=== PATIENT | male | born 1975 | race Caucasian/White ===

== ENCOUNTER 2020-09-10 09:47 | Emergency (ER) | payer OTHER, SELFPAY ==
[2020-09-10 09:56] VITALS: BP 123/72; PULSE 93; RESP 20; TEMP 36.7; O2SAT 98
== END 2020-09-10 10:04 | disposition left against medical advice (07) ==
LOC: EXPBETH 09:53
PROVIDERS: Emergency Provider Registered Nurse
DX: Z53.21 Procedure and treatment not carried out due to patient leaving prior to being seen by health care provider (principal)
CPT/HCPCS: 99199

== ENCOUNTER 2021-08-19 13:42 | Emergency (ER) | payer OTHER, SELFPAY ==
[2021-08-19 13:50] VITALS: BP 172/93; PULSE 93; RESP 18; TEMP 36.8; O2SAT 99
--- NOTE | 2021-08-19 13:53 | ED.GENADULT ---
HPI - General Adult General Chief complaint: Unspecified Stated complaint: diabetic illness Time Seen by Provider: 08/19/21 13:53 Source: patient and RN notes reviewed Mode of arrival: ambulatory Limitations: no limitations History of Present Illness HPI narrative: 46-year-old male presents to the [facility] requesting a refill of his Metformin patient states that he has been out for 2 to 3 weeks. Has been using his insulin and his sugars have been running a little higher. Unable to get an appointment until early September. Increased urination. Denies any blurry vision change in vision. No chest pain or shortness of breath. No abdominal pain. No nausea vomiting or diarrhea. Related Data Home Medications Medication Instructions Recorded Confirmed insulin detemir U-100 [Levemir 100 unit SUBCUT BID 08/19/21 08/19/21 FlexTouch U-100 Insuln] metformin 1,000 mg PO BID 08/19/21 08/19/21 Allergies Allergy/AdvReac Type Severity Reaction Status Date / Time No Known Allergies Allergy Unverified 07/06/17 11:45 Review of Systems Review of Systems: All systems reviewed & are unremarkable except as noted in HPI and below Constitutional: Constitutional: Reports no additional constitutional complaints Eyes: Eyes: Reports no additional eye complaints ENT: Reports system reviewed and no additional complaints, except as documented Cardiovascular: Cardiovascular: Reports no additional cardiovascular complaints Respiratory: Respiratory: Reports no additional respiratory complaints Gastrointestinal: Gastrointestinal: Reports no additional gastrointestinal complaints Genitourinary: Genitourinary: Reports as per HPI Comments: Increased urination Musculoskeletal: Musculoskeletal: Reports no additional musculoskeletal complaints Integumentary/Breasts: Skin/Breast: Reports system reviewed and no additional complaints, except as docu Neurologic: Reports system reviewed and no additional complaints, except as documented Psychiatric: Psychiatric: Reports no additional psychiatric complaints Allergic/Immunologic: Allergic/Immunologic: Reports no additional allergic/immunologic complaints [facility] Past Medical History Medical History Diabetes Hypertension Social History Social History (Updated 08/19/21 @ 19:50 by Montserrat Madsen) Living arrangements: with family Gender identity (if verbalized by the patient): Male Comments At the time of my signature, I reviewed and agree with the nursing past medical, surgical, social, and family history. There is no relevant family history pertinent to the patient complaint. Exam Const: General: cooperative, healthy appearing, comfortable, no acute distress, well developed, alert and awake HENMT: Head: normal to inspection Ears: hearing grossly normal bilaterally and external ears normal General nose exam: Normal external nose present Face and sinus: normal facial exam Mouth: Yes Normal oral and palatal mucosa present Throat: posterior oropharynx normal Eyes: General: appearance normal, both eyes and all related structures Neck: Neck: normal visual inspection, full ROM, no lymphadenopathy and no meningeal signs Chest: Chest palpation & inspection: normal inspection of the chest Resp: Effort & Inspection: normal respiratory effort Cardio: Rate: regular rate Rhythm: regular rhythm GI: Inspection: normal to inspection GI Palp: No abdominal tenderness Back/Spine/Pelvis: Back: no CVA tenderness Skin: General skin exam: normal color Neuro: General: patient oriented x3 and gait normal Cognition (Neuro): normal cognition Speech: normal speech Gait exam (Neuro): Normal gait present Extrem: General: normal to inspection, full ROM and capillary refill normal Psych: Appearance: grossly normal and well kempt Mental Status: mental status grossly normal Speech and movement: Normal speech and movement present Course Course
[2021-08-19 14:08] LABS: Glucose Point of Care 297 mg/dl (65-105)
== END 2021-08-19 14:24 | disposition home or self-care (01) ==
PROVIDERS: Emergency Provider Nurse Practitioner
DX: E11.9 Type 2 diabetes mellitus without complications (principal); I10 Essential (primary) hypertension; Z79.4 Long term (current) use of insulin; Z79.84 Long term (current) use of oral hypoglycemic drugs
CPT/HCPCS: 81003; 82948; 99212; G0463

== ENCOUNTER 2022-03-13 10:28 | Emergency (ER) | payer OTHER, SELFPAY ==
[2022-03-13 10:35] VITALS: BP 139/79; PULSE 104; RESP 14; TEMP 37.2; O2SAT 98
--- NOTE | 2022-03-13 10:37 | ED.URI ---
HPI - URI/Sore Throat General Chief Complaint: Upper Respiratory Infection Stated Complaint: Cough/Body Aches Time Seen by Provider: 03/13/22 10:37 Source: patient and RN notes reviewed History of Present Illness HPI Narrative: Patient is a 47-year-old male who presents the urgent care with complaints of cough, coughing fits and feeling short of breath during the coughing fits. Patient states its been ongoing since Wednesday and seems to gotten worse this morning. Patient denies of any fever, chills, nausea, vomiting, chest pain. Denies of any ill exposures. Patient has not taken anything [id number] for his symptoms. No other acute complaints. No acute distress noted. Patient aware of the plan of care. Some parts of this dictation were generated by voice recognition software and may contain typographical and/or grammatical inaccuracies. Related Data Home Medications Medication Instructions Recorded Confirmed insulin detemir U-100 100 unit/mL 100 unit subcut BID 08/19/21 03/13/22 (3 mL) subcutaneous pen (Levemir FlexTouch U-100 Insulin) metformin 500 mg tablet,extended 1,000 mg PO BID 08/19/21 03/13/22 release 24 hr insulin lispro 100 unit/mL 100 ea subcut TID 03/13/22 03/13/22 subcutaneous pen lisinopril 20 mg tablet 20 mg PO DAILY 03/13/22 03/13/22 Allergies Allergy/AdvReac Type Severity Reaction Status Date / Time No Known Allergies Allergy Unverified 03/13/22 10:40 Review of Systems Review of Systems: CONSTITUTIONAL: Denies fever, chills, or sweats. EYES: Denies visual changes, redness, or discharge. ENT: Denies rhinorrhea, congestion, sore throat, or otalgia. CARDIOVASCULAR: Denies chest pain, palpitations, or edema. RESPIRATORY: Reports of dry cough with intermittent dyspnea during coughing fits GASTROINTESTINAL: Denies abdominal pain, nausea, vomiting, or diarrhea. GENITOURINARY: Denies dysuria or hematuria. SKIN: Denies rash or itching. MUSCULOSKELETAL: Denies back pain, joint pain, or myalgia. NEUROLOGIC: Denies headache, numbness, or weakness. All other systems reviewed are negative, except as documented in HPI. [facility] Past Medical History Medical History Diabetes Hypertension Social History Social History (Updated 08/19/21 @ 19:50 by Montserrat Madsen, CLINICAL PHARMACIST) Gender identity (if verbalized by the patient): Male Comments At the time of my signature, I reviewed and agree with the nursing past medical, surgical, social, and family history. There is no relevant family history pertinent to the patient complaint. Exam Narrative: GENERAL: This is a well-nourished, well-developed patient, in no apparent distress. HEAD: normocephalic, atraumatic. EYES: PERRL. Sclera clear/white. Vision is grossly intact. EARS: External ears normal, auditory canals clear and without drainage, TMs normal without perforation. Hearing grossly intact. NOSE: External nose normal with no obvious nasal discharge, nares without redness, yellowrhinorrhea. THROAT: Mucous membranes moist. Mild erythema noted posterior pharynx with moderate postnasal drainage NECK: Neck supple CARDIOVASCULAR: Regular rate and rhythm without murmurs, gallops, or rubs. RESPIRATORY: Dry cough noted on exam. Clear to auscultation. Breath sounds equal bilaterally. No wheezes, rales, or rhonchi. SKIN: warm, intact with no suspicious lesions or rash, good texture and turgor. NEURO: awake, alert, and oriented to person, place and time. There were no obvious focal neurologic abnormalities. EXTREMITIES: No clubbing, cyanosis, or edema. Course Course Level of Care: Express Care Visit Vital Signs Vital signs: Vital Signs Temperature 98.9 F 03/13/22 10:35 Pulse Rate 104 H 03/13/22 10:35 Respiratory Rate 14 03/13/22 10:35 Blood Pressure 139/79 03/13/22 10:35 Pulse Oximetry 98 03/13/22 10:35 Oxygen Delivery Room Air 03/13/22 10:35 Temperature 98.9 F 03/13/22 10:35 P
== END 2022-03-13 10:57 | disposition home or self-care (01) ==
PROVIDERS: Emergency Provider Nurse Practitioner Family
DX: R05.9 Cough, unspecified (principal); E11.9 Type 2 diabetes mellitus without complications; I10 Essential (primary) hypertension; Z79.4 Long term (current) use of insulin
CPT/HCPCS: 99213; G0463

== ENCOUNTER 2024-11-15 15:15 | Emergency (ER) | payer OTHER, SELFPAY ==
--- OUTSIDE RECORDS SUMMARY | 2024-11-15 15:18 | XMS_ITS | Referral Summary ---
Author Organization [facility] Address [address] [place] [address] Care Team Providers Care Glass Polisher Name Role Phone Gena Dill NP Primary Care Provider [phone] Allergies No known active allergies Medications OneTouch Verio test strips strip USE DIRECTED TO TEST BLOOD SUGAR TWICE DAILY 03/06/20 21 Active BD Ultra-Fine Short Pen Needle 31 gauge x 5/16 needle USE NEW PEN NEEDLE TWICE DAILY 03/07/20 21 Active insulin lispro (HumaLOG, ADMELOG) 100 unit/mL pen for injection Inject 8-13 Units under the skin 3 (three) times a day before meals 45 mL 1 11/19/19 23 Active albuterol HFA (PROVENTIL HFA,VENTOLIN HFA,PROAIR HFA) 90 mcg/actuation inhaler INHALE 2 PUFFS BY MOUTH FOUR TIMES DAILY NEEDED FOR SHORTNESS OF BREATH OR WHEEZING Active lisinopriL (PRINIVIL,ZESTRI L) 40 mg tablet Take 1 tablet (40 mg total) by mouth daily 30 tablet 11 02/14/20 23 Active hydroCHLOROthiaz tamika (MICROZIDE) 12.5 mg capsule Take by mouth daily 02/18/20 23 Active dulaglutide (TRULICITY) 0.75 mg/0.5 mL pen injectorIndicati ons:type 2 diabetes mellitus Inject 0.5 mL (0.75 mg total) under the skin every 7 days 6 mL 1 04/29/[address] (VOLTAREN) 75 mg EC tablet Take 1 tablet (75 mg total) by mouth 2 (two) times a day 07/16/20 23 Active rosuvastatin (CRESTOR) 20 mg tablet Take 1 tablet (20 mg total) by mouth daily 30 tablet 11 10/26/19 24 Active sildenafiL (VIAGRA) 100 mg tabletIndication s:Erectile dysfunction due to arterial insufficiency Take 1 tablet (100 mg total) by mouth daily as needed for erectile dysfunction (1 per day max) 20 tablet 6 01/25/20 24 2024 Active metFORMIN (GLUCOPHAGE) 1,000 mg tabletIndication s:Type 2 diabetes mellitus with hyperglycemia, with long-term current use of insulin (HCC) TAKE 1 TABLET(1000 MG) BY MOUTH TWICE DAILY WITH MEALS 180 tablet 1 09/07/20 24 Active insulin lispro (HumaLOG, ADMELOG) 100 unit/mL vial for injectionIndicat ions:Type 2 diabetes mellitus with hyperglycemia, with long-term current use of insulin (HCC) FOR USE IN INSULIN PUMP. MAXIMUM DAILY INSULIN IS 80 UNITS 30 mL 3 10/09/19 25 Active blood-glucose sensor (Dexcom G6 Sensor) deviceIndication s:Type 2 diabetes mellitus with hyperglycemia, with long-term current use of insulin (HCC) USE DIRECTED AND CHANGE SENSOR EVERY 10 DAYS 9 each 3 11/08/19 25 Active blood-glucose transmitter (Dexcom G6 Transmitter) deviceIndication s:Type 2 diabetes mellitus with hyperglycemia, with long-term current use of insulin (HCC) CHANGE EVERY 90 DAYS 1 each 3 11/13/19 25 Active blood-glucose transmitter (Dexcom G6 Transmitter) deviceIndication s:Type 2 diabetes mellitus with hyperglycemia, with long-term current use of insulin (HCC) Change transmitter every 90 days 1 each 3 07/22/20 23 2024 Discontinued blood-glucose sensor (Dexcom G6 Sensor) deviceIndication s:Type 2 diabetes mellitus with hyperglycemia, with long-term current use of insulin (HCC) USE DIRECTED AND CHANGE EVERY 10 DAYS 3 each 1 09/11/20 24 2024 Discontinued Active Problems Problem Noted Date Diagnosed Date Facial cellulitis 02/10/2023 Assessment & Plan (02/12/2023 2:09 PM CDT): See assessment and plan for sepsis. Assessment & Plan (02/11/2023 1:40 PM CDT): See assessment and plan for sepsis. Assessment & Plan (02/10/2023 5:41 PM CDT): See assessment and plan for sepsis. Dental caries 02/10/2023 Assessment & Plan (02/12/2023 2:13 PM CDT): See assessment and plan for sepsis. Assessment & Plan (02/11/2023 1:41 PM CDT): See assessment and plan for sepsis Assessment & Plan (02/10/2023 5:43 PM CDT): See assessment and plan for sepsis Sepsis 02/10/2023 Assessment & Plan (02/12/2023 2:13 PM CDT): On admission, tachycardia to 120 with leukocytosis 16,500. Source of infection with pyuria and documented maxillary cellulitis. Sepsis lactate was negative. CT facial bones with contrast with evidence of left maxillary cellulitis without an abscess. Additionally has a 2nd left premolar cavity. Started on IV Unasyn in the ED. blood cultures obtained on admission and pending. Concern for worsening infection on morning of 02/10. Initially expanded treatment to IV vancomycin and cefepime. Infectious Disease urgently consulted, appreciate the recommendations. MRSA nasal negative. Per ID's recommendations, previously received IV vancomycin and IV Unasyn until 02/11. Therapy now deescalated to IV Unasyn. Will consider transition to oral antibiotics pending Infectious Disease recommendations. Denies a prior history of MRSA. Less concerns for abscess or orbital infection given imaging. Visual acuity evaluated on 02/12 and presently with 20/20 vision with no differences bilaterally. On 02/12, leukocytosis improvement to 11,300. Plan: Infectious disease on consult. Appreciate recommendations on deescalating treatment in transition to p.o.. Continue IV Unasyn. Blood cultures 02/10 no growth to date. If further worsening, will consider ENT consult. Will require urgent outpatient oral surgeon follow-up. Recommended to also try seeking care with an embossing machine operator helper. Assessment & Plan (02/11/2023 1:47 PM CDT): On admission, tachycardia to 120 with leukocytosis 16,500. Source of infection with pyuria and documented maxillary cellulitis. Sepsis lactate was negative. CT facial bones with contrast with evidence of left maxillary cellulitis without an abscess. Additionally has a 2nd left premolar cavity. Started on IV Unasyn in the ED. blood cultures obtained on admission and pending. Concern for worsening infection on morning of 02/10. Initially expanded treatment to IV vancomycin and cefepime. Infectious Disease urgently consulted, appreciate the recommendations. MRSA nasal negative. Per ID's recommendations, therapy now deescalated to IV Unasyn and IV vancomycin. Will consider discontinuing vancomycin based on blood cultures and ID recommendations. Denies a prior history of MRSA. Less concerns for abscess given imaging or orbital infection. Visual acuity evaluated on 02/11 and presently with 20/20 vision with no differences bilaterally. On 02/11, leukocytosis improvement to 13,600. Plan: Infectious disease on consult. Appreciate recommendations on deescalating treatment in transition to p.o.. Continue IV vancomycin and IV Unasyn. Blood cultures 02/10 no growth to date. If further worsening, will consider ENT consult. Will require urgent outpatient oral surgeon follow-up. Recommended to also try seeking care with an embossing machine operator helper. Assessment & Plan (02/10/2023 5:46 PM CDT): On admission, tachycardia to 120 with leukocytosis 16,500. Source of infection with pyuria and documented maxillary cellulitis. Sepsis lactate was negative. CT facial bones with contrast with evidence of left maxillary cellulitis without an abscess. Additionally has a 2nd left premolar cavity. Started on IV Unasyn in the ED. blood cultures obtained on admission and pending. Concern for worsening infection on morning of 02/10. Initially expanded treatment to IV vancomycin and cefepime. Infectious Disease urgently consulted, appreciate the recommendations. MRSA nasal negative. Per ID's recommendations, therapy now deescalated to IV Unasyn and IV vancomycin. Will consider discontinuing vancomycin based on blood cultures and ID recommendations. Denies a prior history of MRSA. Less concerns for abscess given imaging or orbital infection. Visual acuity evaluated on 02/10 and presently with 20/20 vision with no differences bilaterally. Plan: Infectious disease on consult. Continue IV vancomycin and IV Unasyn. Blood cultures pending. If further worsening, will consider ENT consult. Will require urgent outpatient oral surgeon follow-up. Sinus tachycardia 02/10/2023 Assessment & Plan (02/12/2023 2:28 PM CDT): On admission, heart rate increased to 136. EKG obtained which demonstrated normal sinus with possible LVH. Denies any history of atrial fibrillation. Not presently on anticoagulation. Initial troponins negative. Denies any chest pain or dyspnea. Potentially secondary to ongoing sepsis. Vital signs reviewed on 02/12 and heart rate has declined to lower 90s-100s. Plan: Continue telemetry. Potentially may require rate control if further elevations. Assessment & Plan (02/11/2023 1:43 PM CDT): On admission, heart rate increased to 136. EKG obtained which demonstrated normal sinus with possible LVH. Denies any history of atrial fibrillation. Not presently on anticoagulation. Initial troponins negative. Denies any chest pain or dyspnea. Potentially secondary to ongoing sepsis. Vital signs reviewed on 02/11 and heart rate has declined to lower 90s-100s. Plan: Continue telemetry. Potentially may require rate control if further elevations. Assessment & Plan (02/10/2023 5:52 PM CDT): On admission, heart rate increased to 136. EKG obtained which demonstrated normal sinus with possible LVH. Denies any history of atrial fibrillation. Not presently on anticoagulation. Initial troponins negative. Denies any chest pain or dyspnea. Potentially secondary to ongoing sepsis. Vital signs reviewed on 02/10 and heart rate has declined to lower 110s. Plan: Continue telemetry. Potentially may require rate control if further elevations. Asymptomatic bacteriuria 02/10/2023 Assessment & Plan (02/12/2023 2:29 PM CDT): Urinalysis on admission with 21-50 wbc's, negative nitrites or or leukocytes. Denies any dysuria, frequency or urgency. Denies any flank pain. Physical examination reassuring. Urine culture with insignificant growth. Presently on covered with treatment of Unasyn. Plan: Continue to monitor clinically. Presently receiving treatment with IV Unasyn. Assessment & Plan (02/11/2023 1:44 PM CDT): Urinalysis on admission with 21-50 wbc's, negative nitrites or or leukocytes. Denies any dysuria, frequency or urgency. Denies any flank pain. Physical examination reassuring. Urine culture with insignificant growth. Presently on covered with treatment of Unasyn. Plan: Continue to monitor urine culture. Presently receiving treatment with IV Unasyn. Assessment & Plan (02/10/2023 6:04 PM CDT): Urinalysis on admission with 21-50 wbc's, negative nitrites or or leukocytes. Denies any dysuria, frequency or urgency. Denies any flank pain. Physical examination reassuring. Urine culture pending. Presently on covered with treatment of Unasyn. Plan: Continue to monitor urine culture. Presently receiving treatment with IV Unasyn. BMI 37.0-37.9, adult 02/10/2023 Assessment & Plan (02/12/2023 2:28 PM CDT): BMI 37.65 on admission. Recommend continue lifestyle modifications. Assessment & Plan (02/11/2023 1:43 PM CDT): BMI 37.65 on admission. Recommend continue lifestyle modifications. Assessment & Plan (02/10/2023 6:09 PM CDT): BMI 37.65 on admission. Recommend continue lifestyle modifications. Hypertension associated with type 2 diabetes michelle litus 01/14/2023 Assessment & Plan (07/22/2023 9:37 AM CDT): Chronic problem. Controlled on current lisinopril 40mg daily. Assessment & Plan (04/29/2023 9:44 AM CDT): Chronic problem. Controlled on current lisinopril 40mg daily. Assessment & Plan (02/12/2023 2:27 PM CDT): History of hypertension. Previously taking home medications of lisinopril 20 mg daily. BP on admission of 193/105. Acute elevation likely secondary to ongoing infection. P.r.n. hydralazine added for acute elevations. No evidence for focal neurological deficits at this time. Potentially has a component of hypertension given elevations. Vital signs reviewed on 02/12 and persistently elevated: Temp: [36.3 C (97.4 F)-37.1 C (98.8 F)] 36.3 C (97.4 F) Pulse: [87-104] 97 Resp: [12-18] 12 BP: (151-201)/(88-108) 154/100 Plan: On 02/11 increased lisinopril to 40 mg daily while inpatient. Continue hydralazine p.r.n. Will consider adding a 2nd line scheduled if continued elevation. Recommend outpatient evaluation for possible uncontrolled hypertension. Assessment & Plan (02/11/2023 1:42 PM CDT): History of hypertension. Previously taking home medications of lisinopril 20 mg daily. BP on admission of 193/105. Acute elevation likely secondary to ongoing infection. P.r.n. hydralazine added for acute elevations. No evidence for focal neurological deficits at this time. Potentially has a component of hypertension given elevations. Vital signs reviewed on 02/11 and persistently elevated: Temp: [36.1 C (96.9 F)-37.7 C (99.8 F)] 36.7 C (98 F) Pulse: [93-111] 101 Resp: [18-20] 18 BP: (147-190)/(85-108) 152/92 Plan: On 02/11, lisinopril to 40 mg daily while inpatient. Continue hydralazine p.r.n. Recommend outpatient evaluation for possible uncontrolled hypertension. Assessment & Plan (02/10/2023 5:48 PM CDT): History of hypertension. Previously taking home medications of lisinopril 20 mg daily. BP on admission of 193/105. Acute elevation likely secondary to ongoing infection. P.r.n. hydralazine added for acute elevations. No evidence for focal neurological deficits at this time. Potentially has a component of hypertension given elevations. Plan: Will increase lisinopril to 40 mg daily while inpatient. Continue hydralazine p.r.n. Recommend outpatient evaluation for possible uncontrolled hypertension. Assessment & Plan (01/14/2023 9:43 AM CDT): Chronic problem. At goal on current lisinopril 20mg daily. No changes at this time. Insulin pump status 01/14/2023 Assessment & Plan (07/22/2023 9:41 AM CDT): No pump setting changes. Assessment & Plan (04/29/2023 9:45 AM CDT): Basal rate changed from 1.6 units/hr to 1.7 units/hr. Aware to monitor BS closely once he starts the Trulicity. May need to adjust basal rate. Assessment & Plan (01/14/2023 9:44 AM CDT): New pump started 1 week ago today. Doing well. Discussed food & correctional boluses. No pump setting changes today. Candidal balanitis 01/15/2022 Erectile dysfunction 01/15/2022 Assessment & Plan (10/26/2023 10:36 AM SOLUTIONS ENGINEER): Start Sildenafil Vasectomy evaluation 01/15/2022 COVID-19 05/26/2021 Type 2 diabetes mellitus wit h hyperglycemia, with long-term current use of insulin 05/19/2018 Assessment & Plan (10/26/2023 10:35 AM SOLUTIONS ENGINEER): Hba1c was Lab Results Component Value Date HGBA1C 6.3 10/26/2023 today, indicating adequate DM control Goal Hba1c under 7 and blood glucose level in the 120-160 range was explained Low carb diet and daily aerobic and /or resistant exercise were advised Prevention and treatment of hyypoglcyemia were discussed with the patient Blood glucose monitoring : CGM with DEXCOM Adjustment to medications: Continue pump at current settings Setting adjusted, started on control IQ Assessment & Plan (07/22/2023 9:37 AM CDT): Chronic problem. A1c stable; changed from 7.0% to now 7.2%. Increased basal rate from 1.6 to 1.7 units/hr. Insurance does not cover Ozempic. Will start Trulicity 0.75mg weekly. Aware to monitor BS closely once starting. May need to adjust basal rate. Current medications: Metformin 1000mg twice daily before meals Trulicity 0.75mg weekly Humalog via T-Slim with CIQ (turned off at time of appt) BR 12a 1.7 CR 6 CF 25 T 110 AIT 5 hours UTD on labs. UTD on DM eye exam. Strive for regular exercise (30min most days) and diet (get at least 4-5 servings of fruit and veggies daily, avoid processed foods, increase lean protein intake and decrease carb portions as well as fruit juices, regular soda & desserts). Watch carbs and simple sugars. Dexcom for blood sugar. Check the feet daily for skin breakdown and infection. Assessment & Plan (04/29/2023 9:44 AM CDT): Chronic problem. A1c stable; changed from 7.0% to now 7.2%. Increased basal rate from 1.6 to 1.7 units/hr. Insurance does not cover Ozempic. Will start Trulicity 0.75mg weekly. Aware to monitor BS closely once starting. May need to adjust basal rate. Current medications: Metformin 1000mg twice daily before meals Trulicity 0.75mg weekly Humalog via T-Slim with CIQ (turned off at time of appt) BR 12a 1.7 CR 6 CF 25 T 110 AIT 5 hours UTD on labs. UTD on DM eye exam; had 01/2023 at [facility]. Letter sent to get copy of report. Strive for regular exercise (30min most days) and diet (get at least 4-5 servings of fruit and veggies daily, avoid processed foods, increase lean protein intake and decrease carb portions as well as fruit juices, regular soda & desserts). Watch carbs and simple sugars. Check the feet daily for skin breakdown and infection. Assessment & Plan (02/12/2023 2:14 PM CDT): History of type 2 diabetes mellitus. Potentially contributing to worsening infection. Previously taking home regimen of insulin pump and metformin. While inpatient has been started on lispro sliding scale. Blood sugars reviewed on 02/12 and presently stable 96-130. Plan: Continue insulin sliding pump. Continue lispro sliding scale prandially Continue consistent carbohydrate diet. Assessment & Plan (02/11/2023 1:42 PM CDT): History of type 2 diabetes mellitus. Potentially contributing to worsening infection. Previously taking home regimen of insulin pump and metformin. While inpatient has been started on lispro sliding scale. Blood sugars reviewed on 02/11 and presently stable 132-152. Plan: Continue insulin sliding pump. Continue lispro sliding scale prandially Continue consistent carbohydrate diet. Assessment & Plan (02/10/2023 5:43 PM CDT): History of type 2 diabetes mellitus. Potentially contributing to worsening infection. Previously taking home regimen of insulin pump and metformin. While inpatient has been started on lispro sliding scale. Blood sugars reviewed on 02/10 and presently stable. Plan: Continue insulin sliding pump. Continue lispro sliding scale prandially Continue consistent carbohydrate diet. Assessment & Plan (01/14/2023 9:43 AM CDT): Chronic problem, at goal on A1c but variable sugar levels during waking hours. A1c improved from 8.7% to now 7.0% Reviewed both Tandem & Dexcom downloads w/[employer]. No pump changes at this time. To enter food bolus & correctional boluses more consistently. To call to get your diabetic eye exam. Will update MA/Cr & Lipid today. Verified that he uses [facility]. Aware to check results/results letter in [facility]. Will contact by phone if needed. Will try to get Ozempic again. 0.25mg weekly for 2 weeks. Then increase to 0.5mg weekly. Current medications: Metformin 1000mg twice daily before meals Ozempic 0.25mg weekly x2 weeks then increase to 0.5mg weekly T-Slim with CIQ BR 12a 1.6 CR 6 CF 25 T 110 AIT 5 hours Assessment & Plan (10/15/2022 2:07 PM SOLUTIONS ENGINEER): Hba1c was Lab Results Component Value Date HGBA1C 8.7 10/15/2022 today, indicating inadequate DM control Goal Hba1c under 7 and blood glucose 110-150 was explained Diet and exercise were advised Prevention and treatment of hyypoglcyemia were discussed with the patient Blood glucose monitoring : start CGM with DEXCOM Adjustment to medications: Lower Levemir to 50 units twice a day, morning and bedtime, Take Humalog, 8 units before each meal For sugars over 160, take 10 units For sugars over 200, take 11 units For sugars over 240, take 12 units For sugars over 280, take 13 units Stay on Metformin Start Mounjaro 2.5 mg weekly x 4 weeks, then continue with 5 mg weekly Will start process for insulin pump with Tandem Assessment & Plan (03/24/2021 4:35 PM CDT): Diagnosed with diabetes in 2013 Started insulin ar diagnosis Control : poor control- compliance with insulin and diet in questionable A1c was 12% on 11/29/20 Kidney: GFR 118 on 09/10/20 Neuropathy : mild- to moderate Plan: Refer patient to dietitian ADA diet explained to patient Decrease Levemir insulin to 80 units bid Increase Humalog insulin before meals to 15-15-20 units Plus sliding scale + 5 units > 250 + 10 units > 300 Continue Metformin 500 mg bid Monitor sugars 3 x per day and send records in 2 weeks. Hypoglycemia symptoms and treatment reviewed with patient. Call if having low sugars. Ophthalmology exam on regular basis. Assessment & Plan (05/19/2018 10:31 PM CDT): Patient states he is supposed to be on insulin but does not know what type. He has been taking insulin sporadically. Will check HbA1c and cover with a sliding scale. Hyperlipidemia associated with type 2 diabetes harrison gibson 05/19/2018 Assessment & Plan (10/26/2023 10:36 AM SOLUTIONS ENGINEER): Increased CV in DM pts discussed Start Rosuvastatin 20 mg daily Assessment & Plan (05/19/2018 10:31 PM CDT): Continue medications Tachycardia 05/19/2018 Assessment & Plan (05/19/2018 10:32 PM CDT): Likely due to infection. Will give patient bolus and run some maintenance fluids and continue to monitor. Leukocytosis 05/19/2018 Assessment & Plan (05/19/2018 10:38 PM CDT): Likely secondary to infection. Will continue to monitor. Resolved Problems Problem Noted Date Diagnosed Date Resolved Date Morbid (severe) obesity due to excess calories 10/15/2022 01/13/2023 Acute cystitis with hematuria 05/19/2018 01/13/2023 Assessment & Plan (05/19/2018 10:32 PM CDT): Similar event 1-2 years ago. Hematuria has resolved after antibiotics. Will continue with antibiotics. Patient will need outpatient urology follow-up for possible cystoscopy. Social History Tobacco Use Types Packs/Day Years Used Date Smoking Tobacco: Former Cigars Smokeless Tobacco: Never Comments:1 cigar approximate ly once a month. Patient states he no longer smokes cigars Alcohol Use Standard Drinks/Week Comments Yes 0 (1 standard drink = 0.6 oz pur e alcohol) occassionally AUDIT-C Answer Date Recorded Q1: How often do you have a drink containing alc ohol? Monthly or less 02/10/2023 Q2: How many drinks containi ng alcohol do you have on a typical day when you are drinking? 5 or 6 02/10/2023 Q3: How often do you have si x or more drinks on one occasion? Less than monthly 02/10/2023 Personal Safety Answer Date Recorded Getting School Help Needed Not on file 02/14 Sex and Gender Information Value Date Recorded Sex Assigned at Not on file Legal Sex Male 12:29 AM SOLUTIONS ENGINEER Gender Identity Not on file Sexual Orientation Not on file Last Filed Vital Signs Vital Sign Reading Time Taken Comments Blood Pressure 120/70 10/26/2023 9:53 AM SOLUTIONS ENGINEER Pulse 92 10/26/2023 9:53 AM SOLUTIONS ENGINEER Temperature 36.4 C (97.5 F) 02/13/2023 10:51 AM CDT Respiratory Rate 18 10/26/2023 9:53 AM SOLUTIONS ENGINEER Oxygen Saturation 98% 02/13/2023 10: 51 AM CDT Inhaled Oxygen Concentration - - Weight 113.1 kg (249 lb 4.8 oz) 10/26/2023 9:53 AM SOLUTIONS ENGINEER Height 170.2 cm (5' 7.01 ) 10/26/2023 9:53 AM CS T Body Mass Index 39.03 10/26/2023 9:53 AM SOLUTIONS ENGINEER Plan of Treatment Not on file Procedures Procedure Name Priority Date/Time Associated Diagnosis Comments POCT HEMOGLOBIN A1C Routine 10/26/2023 9 :53 AM SOLUTIONS ENGINEER Type 2 diabetes mellitus with hyperglycemia, with long-term current use of insulin ([facility]) ([facility]) DIABETES EYE EXAM Routine 02/18/2023 8:38 AM CDT EGFR Routine 02/13/2023 5:23 AM CDT LIPID PANEL Routine 01/14/2023 9:50 AM CDT Type 2 diabetes mellitus with hyperglycemia, with long-term current use of insulin ([facility]) ([facility]) ALBUMIN CREATININE RATIO, URINE Routine 01/14/2023 9:50 AM CDT Type 2 diabetes mellitus with hyperglycemia, with long-term current use of insulin ([facility]) ([facility]) from Last 3 Months or Most Recently Relevant to Health Maintenance Results * (ABNORMAL) POCT hemoglobin A1c (10/26/2023 9:53 AM SOLUTIONS ENGINEER) Hemoglobin A1C, POC 6.3 % Blood spot 10/26/2023 9:53 AM SOLUTIONS ENGINEER us Judah Morales MD POINT OF CARE TEST ORDERABLES Fi nal Result * DIABETES EYE EXAM (02/18/2023 8:38 AM CDT) Historical Provider HEALTH MAINTENANCE Edited Result - Final * eGFR (02/13/2023 5:23 AM CDT) eGFR 116 mL/min/1. 73 m2 LENCHO PINEDA ([facility]END[facility]) Comment: Interpretive Data Reference Interval Normal >/= 90 mL/min/1.73m2 Mildly decreased* 60 - 89 mL/min/1.73m2 Mildly to moderately decreased 45 - 59 mL/min/1.73m2 Moderately to severely decreased 30 - 44 mL/min/1.73m2 Severely decreased 15 - 29 mL/min/1.73m2 Kidney Failure < 15 mL/min/1.73m2 *Relative to young adult level Estimated glomerular filtration rate is determined by the 2020 CKD-EPI equation recommended by the [employer] (A Unifying Approach to GFR Estimation: Recommendations of the NKF-ASK Task Force on Reassessing the Inclusion of Race in Diagnosing Kidney Disease, JASN 2020). The CKD-EPI equation should not be used for patients with unstable renal function and has not been validated in children and those over 70. Current interpretive data was last reviewed 2021. Blood 02/13/2023 5:23 AM CDT 02/13/2023 5:26 AM CDT us Carrie Lynch MD LAB BLOOD ORDERABLES Lana l Result [facility] Department [place] [address] * (ABNORMAL) Albumin Creatinine Ratio, Urine (01/14/2023 9:50 AM CDT) Albumin Ur 26.2 mg/L [facility] Comment: Interpretive Data No reference range established. Current interpretive data was last revised 2019. Creatinine Ur 88.7 mg/dL [facility] Comment: Interpretive Data No reference range established. Current interpretive data was last revised 2019. Albumin Creatinine Ratio, Ur 30(H) 1 - 29 mg/g [facility] Urine 01/14/2023 9:50 AM CDT 01/14/2023 2:58 PM CDT us Senia Barry NP LAB URINE ORDERABLES Lana l Result [facility] [id number] Department [place] [address] * (ABNORMAL) Lipid panel (01/14/2023 9:50 AM CDT) Cholesterol 204(H) 30 - 199 mg/dL [facility] J[facility] Comment: Interpretive Data Ages < or = 19 years Acceptable: <170 mg/dL Borderline high: 170-199 mg/dL High: >or= 200 mg/dL Ages > or = 20 years Desirable: <200 mg/dL Borderline high: 200-239 mg/dL High: >or= 240 mg/dL Literature References: 1. Expert Panel on Integrated Guidelines for Cardiovascular Health and Risk Reduction in Children and Adolescents. Pediatrics 2011;128:S213 2. NCEP Expert Panel. Circulation 2004;110:227 Current Interpretive Data was last revised on 2018. Triglycerides 292(H) <=149 mg/dL [facility] Comment: Interpretive Data Ages < or = 9 years Acceptable: <75 mg/dL Borderline high: 75-99 mg/dL High: >or= 100 mg/dL Ages 10 to 20 years Acceptable: <90 mg/dL Borderline high: 90-129 mg/dL High: >or= 130 mg/dL Ages > or = 20 years Desirable: <150 mg/dL Borderline high: 150-199 mg/dL High: 200-499 mg/dL Very high: >or= 499 mg/dL Literature References: 1. Expert Panel on Integrated Guidelines for Cardiovascular Health and Risk Reduction in Children and Adolescents. Pediatrics 2011;128:S213 2. NCEP Expert Panel. Circulation 2004;110:227 Current Interpretive Data was last revised on 2018. HDL 41 >=40 mg/dL [facility] Comment: Interpretive Data Ages < or = 19 years Acceptable: >45 mg/dL Borderline low: 40-45 mg/dL Low: <40 mg/dL Ages > or = 20 years Desirable: >or= 60 mg/dL Low: <40 mg/dL Literature References: 1. Expert Panel on Integrated Guidelines for Cardiovascular Health and Risk Reduction in Children and Adolescents. Pediatrics 2011;128:S213 2. NCEP Expert Panel. Circulation 2004;110:227 Current Interpretive Data was last revised on 2018. LDL, calculated 105 <=129 mg/dL [facility] Comment: Interpretive Data Ages < or = 19 years Acceptable: <110 mg/dL Borderline high: 110-129 mg/dL High: >or= 130 mg/dL Ages > or = 20 years Optimal: <100 mg/dL Near optimal: 100-129 mg/dL Borderline high: 130-159 mg/dL High: >160 mg/dL Literature References: 1. Expert Panel on Integrated Guidelines for Cardiovascular Health and Risk Reduction in Children and Adolescents. Pediatrics 2011;128:S213 2. NCEP Expert Panel. Circulation 2004;110:227 Current Interpretive Data was last revised on 2018. Non-HDL Cholesterol 163 mg/dL [facility] Comment: Interpretive Data Ages < or = 19 years Acceptable: <120 mg/dL Borderline high: 120-144 mg/dL High: >145 mg/dL Ages > or = 20 years When triglycerides are >200 mg/dL, Non-HDL cholesterol is a secondary target of therapy with treatment goals that are 30 mg/dL greater than the LDL cholesterol target. Literature References: 1. Expert Panel on Integrated Guidelines for Cardiovascular Health and Risk Reduction in Children and Adolescents. Pediatrics 2011;128:S213 2. NCEP Expert Panel. Circulation 2004;110:227 Current Interpretive Data was last revised on 2018. Chol/HDL ratio 5 [facility] Blood 01/14/2023 9:50 AM CDT 01/14/2023 2:58 PM CDT Senia Barry NP LAB BLOOD ORDERABLES Lana l Result [facility]CHO [facility] [id number] Department [place] [address] from Last 3 Months or Most Recently Relevant to [place] [address] [facility] Advance Directives For more information, please contact: [phone] * Full Code (Latest Code Status on File) Date Activated Date Inactivated Comments 02/10/2023 5:12 AM 02/13/2023 4:56 PM * Full Code Date Activated Date Inactivated Comments 05/19/2018 2:03 PM 05/21/2018 4:13 PM Care Teams 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
--- OUTSIDE RECORDS SUMMARY | 2024-11-15 15:18 | XMS_ITS | Clinical Summary ---
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 Name Role Phone Gena Dill APRN, [employer] Primary Care Provider Social History Tobacco Use Types Packs/Day Years Used Date Smoking Tobacco: Never Assessed Sex and Gender Information Value Date Recorded Sex Assigned at Not on file Legal Sex Male 10:38 PM CDT Gender Identity Not on file Sexual Orientation Not on file Plan of Treatment Health Maintenance Due Date Last Done Comments Hepatitis C Virus (HCV) Screening 1975 TdaP Immunization 1975 Hepatitis B Immunization (1 of 3 - 19+ 3-dose series) 1994 Colonoscopy 2020 Colorectal Cancer Screening 2020 Influenza Immunization (#1) 2024 11/0 01/2018, 07/02/2015 SARS-COV-2 Immunization ( season) 2024 Respiratory Syncytial Virus (RSV) Immunization (Adult) (1 - 1-dose 75+ series) 2050 Meningococcal Immunization (ACWY) Aged Out No longer eligible b ased on patient's age to complete this topic Pneumococcal Immunization Combined Aged Out No longer eligible b ased on patient's age to complete this topic Rotavirus Immunization Aged Out No lo nger eligible based on patient's age to complete this topic Insurance MEDICAID [employer] Care Teams Steel Fitter Relationship Specialty Start Date End Date Gena Dill APRN, [employer] [address] [place] [address] PCP - General Advanced Practice Nurse 11/27/21
--- OUTSIDE RECORDS SUMMARY | 2024-11-15 15:18 | XMS_ITS | Data Portability ---
Author Organization [facility] Address [address] [place] [address] Care Team Providers Care Physics Technician Name Role Phone ARMANI, GENA Primary Care Provider [phone] Assessment Encounter Date Assessment Date Assessment LastModified by Organization Details LastModified Time 08/12/2022 08/12/2022 Mr. Keller came into the office, requesting a compliance letter that would allow him to keep his job. 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 Not available 08/25/2022 08:31:42 10/29/2022 10/29/2022 Mr. Keller presented via telephone communication for ER f/u appointment. Patient presented to [facility] on 10/26 with c/o vomiting, fever, and tooth abscess. Patient prescribed antibiotics and discharged. Patient reports he just picked up the antibiotic prescribed by both the hospital and his dentist. Patient reports no change in symptoms, still having chills, cough, congestion, body aches and diarrhea. Reviewed by Dr. Johnson, who concurs with assessment and plan. [email or web address] Not available 11/02/2022 13:26:09 02/17/2023 02/17/2023 Mr. Keller presented in office today for f/u appointment. Not available 02/24/2023 21:46:40 03/31/2023 03/31/2023 Mr.. Keller presented in office today for f/u appointment. Not available 03/31/2023 09:43:39 07/16/2023 07/16/2023 Mr. Keller presented in office today c/o bilateral shoulder pain. The patient reports that he has experienced shoulder pain for five years, and during the last three to four weeks, it has gotten worse. [email or web address] Not available 07/16/2023 11:47:03 Plan of Treatment Reminders Order Date Submit Date Provider Last Modified By Organization Details Last Modified Time Details Appointments None recorded. Lab None recorded. Referral orthopedi c surgeon referral 2022 023 alexis Walker MD, [address] [facility] , [address], [place], [address], 4 16:21:21 Procedures None recorded. Surgeries None recorded. Imaging XR, shoulder, 2 or more view 2022 023 TRE Toney (Radiology), [address] [facility] , [place], [address], 3 10:41:01 Medication Orders diclofena c sodium 75 mg tablet,de layed release 2022 023 [place] [address] [id number], [address], [place], [place], [id number], 3 11:43:04 hydrochlo rothiazid e 12.5 mg capsule 2022 023 [address] [facility] [id number], [address], [place], [place], [id number], 3 10:34:48 benzonata te 100 mg capsule 2022 023 [id number], [address], [place], [place], [id number], 3 08:28:35 Mucinex DM 60 mg-1,200 mg tablet,ex tended release 12 hr 2022 023 [id number], [address] [place], [id number], 11:01:34 Patient TargetsNo targets recorded. Patient Instructions Encounter Date Encounter Id Patient Instructions Last Modified By Organization Details Last Modified Time 08/12/2022 [id number] - Always present to ER or Urgent Care with any progression of/alarming symptoms, significant changes in symptoms or any concerning or urgent matters Not available 08/25/2022 08:27:58 10/29/2022 [id number] - Always present to ER or Urgent Care with any progression of/alarming symptoms, significant changes in symptoms or any concerning or urgent matters Not available 10/29/2022 09:49:48 02/17/2023 [id number] A healthy lifestyle: care instructions Not available 02/24/2023 16:05:36 how to read a food label to limit sodium: care instructions Not available 02/17/2023 10:35:35 low sodium diet (2,000 milligram): care instructions Not available 02/17/2023 10:35:35 - Always present to ER or Urgent Care with any progression of/alarming symptoms, significant changes in symptoms or any concerning or urgent matters Not available 02/24/2023 21:38:12 03/31/2023 [id number] - Always present to ER or Urgent Care with any progression of/alarming symptoms, significant changes in symptoms or any concerning or urgent matters Not available 03/31/2023 09:37:28 07/16/2023 [id number] A healthy lifestyle: care instructions Not available 07/16/2023 11:19:11 shoulder pain: care instructions Not available 07/16/2023 11:19:11 shoulder stretches: exercises Not available 07/16/2023 11:19:10 - Always present to ER or Urgent Care with any progression of/alarming symptoms, significant changes in symptoms or any concerning or urgent matters Not available 07/16/2023 11:54:46 Reason for Referral Orthopedic Surgeon Referral for Bilateral shoulder joint pain Referring Physician: Gena Lomeli, Family Medicine, Encounter Date: 07/16/2023 Results Created Date Observation Date Name Description Value Unit Range Abnormal Flag Note LastModifiedBy Organization Detail LastModifiedTime 07/24/20 22 07/31/2022 HEMOG LOBIN A1C hemoglobin A1C 10.7 % 4.8-5. 6 above high normal Predi abete s: 5.7 - 6.4 Diabe altaf: >6.4 Glyce trina contr ol for adult s with diabe altaf: <7.0 Not Available [facility] ([facility]) [address], [place], [address], 07/31/2022 14:11:35 07/24/20 23 07/22/2023 XR, shoul kirit, 2 or more view No observ ation record ed. [address], [address], 07/29/2023 10:45:36 07/24/20 23 07/22/2023 XR, shoul kirit, 2 or more view No observ ation record ed. [facility] [address], [address], 07/29/2023 10:45:37 Result Notes None recorded. Problems Name Problem SNOMED Code Status Onset Date Resolution Date Notes Provider Name and Address Organization Details Recorded Time Mood disorder 89651080 Active 2019 Marbella han, [place] - [place] 0 16:20:45 Mixed hyperlipi demia 732351079 Active 2019 GENA LOMELI NP Attn: Accounting, [address] [place], [address], [place] - [place] 2 09:06:53 Adult health examinati on Completed 201906/13/2020 GENA LOMELI NP Attn: Accounting, [address] [place], [address], [facility] - [facility] 0 15:05:33 Right lower quadrant pain 938004380 Active 2020 GENA LOMELI NP Attn: Accounting, [address] [place], [address], [place] - [facility] 1 13:45:43 Noncompli ance with therapeut ic regimen 426736266 Completed 202110/13/2021 GENA LOMELI NP Attn: Accounting, [address] [facility], [place], [place], [address] [place] [address], [place] - [facility] 2 18:51:14 Uncontrol led type 2 diabetes mellitus 990774171 Active 2021 GENA LOMELI NP Attn: Accounting, [address] [facility], [place], [place], [address] [place] [address], [place] - [facility] 2 09:06:53 Noncompli ance with medicatio n regimen 922021725 Active 2021 GENA LOMELI NP Attn: Accounting, [address] [facility], [place], [place], [address] [place] [address], [place] - [facility] 2 18:17:25 Noncompli ance with treatment 0461666 Active 2021 GENA LOMELI NP Attn: Accounting, [address] [facility], [place], [place], [address] [place] [address], [place] [facility] 2 18:17:26 Candidal balanitis 83052919 Active 2021 GENA LOMELI NP Attn: Accounting, [address] [facility], [place], [place], [address] [place] [address], [place] [facility] 2 18:24:26 Liver function tests outside reference range 605460226 Active Zay Edwards MD Attn: Accounting, [address] [facility], [place], [place], [address] [place] [address], [place] [facility] 6 16:58:04 Sleep pattern disturban ce 94810660 Active Zay Edwards MD Attn: Accounting, [address] [facility], [place], [place], [address] [place] [address], [place] - [facility] 6 16:58:04 Hyperchol esterolem ia 91029747 Completed 11/28/2020 GENA LOMELI NP Attn: Accounting, [address] [facility], [place], [address], [place] [facility] 1 13:25:40 Vitamin D deficienc y 05184549 Active Zay Edwards MD Attn: Accounting, [address] [facility], [place], [address], [place] [facility] 6 17:18:47 Obstructi ve sleep apnea syndrome 99119874 Active GENA LOMELI NP Attn: Accounting, [address] [facility], [place], [address], [place] [facility] 2 09:06:54 Diabetes mellitus 39404613 Active GENA LOMELI NP Attn: Accounting, [address] [place], [address], [place] [facility] 2 09:06:54 Hypertrig lyceridem ia 816667875 Completed 11/28/2020 GENA LOMELI NP Attn: Accounting, [address] [facility], [place], [address], [place] [facility] 1 13:25:37 Hypertens jeremias disorder 82148113 Completed 06/13/2020 GENA LOMELI NP Attn: Accounting, [address] [place], [address], [place] [facility] 0 15:04:13 Essential hypertens ion 72037652 Active GENA LOMELI NP Attn: Accounting, [address] [place], [address], [place] [facility] 2 09:06:54 Obesity 110504968 Active Zay Edwards MD Attn: Accounting, [address] [place], [address], [place] [facility] 6 17:18:47 Problem Notes None recorded. Procedures Surgical History None recorded. Imaging Results Imaging Date Name Status LastModified by [facility] Details LastModified Time 07/22/2023 XR, shoulder, 2 or more view [facility] [address] [facility], [place], [address], 07/29/2023 10:45:36 07/22/2023 [facility]R, [facility], [facility] [address], [place], [address], 07/29/2023 10:45:37 Procedure Notes None recorded. Medical Equipment None Reported. Allergies No known drug allergies Medications Name Sig Start Date Stop Date Status Note LastModified by Organization Details LastModified Time softclix mis lancetsacc u-chek softclix lancets active Not Available Not Available Not Available metformin tab 1000mgmetf ormin hcl active Not Available Not Available No t Available fenofibrat e tab 160mgfenof ibrate active Not Available Not Available Not Available accu-chek altaf compactacc u-chek compact plus active Not Available Not Available Not Available lantus inj 100/mllant us 05/20 completed Not Available Not Available Not Available furosemide 20 mg tabs active Not Available Not Available N ot Available accu-chek kit compactacc u-chek compact plus care kit active Not Available Not Available Not Available potassium chloride er 10 meq tbcr active Not Available Not Available Not Available lisinop/hc tz tab 20-12.5lis inopril/hy drochlorot hiazide active Not Available Not Available Not Available lantus 100 unit/ml soln 05/20 completed Not Available Not Available Not Available lovastatin 10 mg tabs active Not Available Not Available N ot Available aspirin low tab 81mg ecaspirin ec low dose active Not Available Not Available Not Available metformin hcl 1000 mg tabs active Not Available Not Available Not Available fenofibrat e 160 mg tabs active Not Available Not Available Not Available lisinopril /hydrochlo rothiazide 20-12.5 mg tabs active Not Available Not Available Not Available insulin syrg mis 1ml/31gins ulin syringe/u- 100/1ml/31 g x 5/16 05/20 completed Not Available Not Available Not Available insulin syringe/u- 100/1ml/31 g x 02/09 31g x 5/16 1 ml misc 08/24 /2017 completed Not Available Not Available Not Available glipizide 5 mg tabs active Not Available Not Available No t Available glipizide tab 5mgglipizi de active Not Available Not Available Not Available lovastatin tab 10mglovast atin active Not Available Not Available Not Available amoxicilli n 500 mg capsule TAKE 1 CAPSULE BY MOUTH EVERY 8 HOURS 03/06 completed Not Available Not Available Not Available atorvastat in 80 mg tablet TAKE 1 TABLET BY MOUTH EVERY DAY IN THE EVENING 07/24 completed pt not taking Not Available Not Available Not Available clindamyci n HCl 300 mg capsule TAKE 1 CAPSULE BY MOUTH THREE TIMES DAILY EVERY 8 HOURS 02/17 completed Not Available Not Available Not Available lisinopril 20 mg-hydroch lorothiazi de 12.5 mg tablet TAKE 1 TABLET BY MOUTH EVERY DAY 10/04 completed Not Available Not Available Not Available ibuprofen 800 mg tablet 10/04 completed Not Available Not Available Not Available fluconazol e 150 mg tablet TAKE 1 TABLET BY MOUTH EVERY DAY FOR 1 DAY 07/24 completed Not Available Not Available Not Available hydrocodon e 5 mg-acetami nophen 325 mg tablet TAKE 1 TO 2 TABLETS BY MOUTH EVERY 4 HOURS NEEDED FOR PAIN. NO MORE THAN 8 TABLETS PER DAY. 03/31 completed Not Available Not Available Not Available lisinopril 20 mg tablet TAKE 1 TABLET BY MOUTH EVERY DAY 02/17 completed Not Available Not Available Not Available prednisone 20 mg tablet TAKE 1 TABLET BY MOUTH DAILY 07/24 completed Not Available Not Available Not Available Lantus U-100 Insulin 100 unit/mL subcutaneo us solution 100 units twice daily 06/13 completed Not Available Not Available Not Available Accu-Chek Softclix Lancets TEST TWICE DAILY active Not Available Not Available No t Available potassium chloride ER 10 mEq tablet,ext ended release TAKE 1 TABLET BY MOUTH EVERY DAY AFTER MEALS 01/01 completed Not Available Not Available Not Available ciprofloxa sai 500 mg tablet 01/01 completed Not Available Not Available Not Available sulfametho xazole 800 mg-trimeth oprim 160 mg tablet 05/26 completed Not Available Not Available Not Available lovastatin 10 mg tablet TAKE 1 TABLET BY MOUTH EVERY NIGHT AT BEDTIME 06/18 completed Not Available Not Available Not Available sildenafil 100 mg tablet TAKE 1 TABLET BY MOUTH ONCE DAILY NEEDED FOR ERECTILE DYSFUNCT ION. MAX OF ONE TABLET PER DAY active Not Available Not Available No t Available acyclovir 800 mg tablet Take 1 tablet 5 times a day by oral route as directed for 10 days. 08/01 completed Not Available Not Available Not Available glimepirid e 2 mg tablet TAKE 1 TABLET BY MOUTH EVERY DAY active Not Available Not Available No t Available betamethas one valerate 0.1 % topical cream APPLY THIN LAYER TOPICALL Y TO THE AFFECTED AREA EVERY DAY 07/24 completed Not Available Not Available Not Available cephalexin 500 mg capsule 05/26 completed Not Available Not Available Not Available metformin 1,000 mg tablet TAKE 1 TABLET BY MOUTH TWICE DAILY WITH MEALS active Not Available Not Available No t Available nystatin 100,000 unit/gram topical cream APPLY TO THE AFFECTED AREA(S) BY TOPICAL ROUTE 2 TIMES PER DAY 06/15 completed Not Available Not Available Not Available clotrimazo le-betamet hasone 1 %-0.05 % topical cream 07/24 completed Not Available Not Available Not Available glimepirid e 4 mg tablet TAKE 1 TABLET BY MOUTH DAILY BEFORE BREAKFAS T 10/04 completed Not Available Not Available Not Available hydrochlor othiazide 12.5 mg capsule TAKE 1 CAPSULE BY MOUTH EVERY DAY active Not Available Not Available No t Available betamethas one dipropiona te 0.05 % topical cream APPLY THIN LAYER TOPICALL Y TO THE AFFECTED AREA EVERY DAY 07/24 completed Not Available Not Available Not Available sertraline 25 mg tablet Take 1 tablet every day by oral route. 06/13 completed Not Available Not Available Not Available diclofenac sodium 75 mg tablet,del ayed release Take 1 tablet(s ) twice a day by oral route for 30 days. active Not Available Not Available No t Available insulin syringe U-100 with needle 1 mL 31 gauge x 02/09 USE TO TEST TWICE DAILY active Not Available Not Available No t Available hydroxyzin e HCl 25 mg tablet TAKE 1 TABLET BY MOUTH THREE TIMES DAILY NEEDED 11/28 completed Not Available Not Available Not Available furosemide 20 mg tablet TAKE 1 TABLET BY MOUTH EVERY MORNING 01/01 completed Not Available Not Available Not Available ergocalcif alison (vitamin D2) 1,250 mcg (50,000 unit) capsule TAKE 1 CAPSULE BY MOUTH EVERY WEEK DIRECTED 10/04 completed Not Available Not Available Not Available Aspir-81 mg tablet,del ayed release Take 1 tablet(s ) every day by oral route. 2020 active pt not taking Not Available Not Available Not Available insulin lispro (U-100) 100 unit/mL subcutaneo us solution FOR USE IN INSULIN PUMP. MAXIMUM DAILY INSULIN IS 80 UNITS active Not Available Not Available No t Available ibuprofen 600 mg tablet TAKE 1 TABLET BY MOUTH THREE TIMES DAILY WITH FOOD 07/16 completed Not Available Not Available Not Available albuterol sulfate HFA 90 mcg/actuat ion aerosol inhaler INHALE 2 PUFFS BY MOUTH FOUR TIMES DAILY NEEDED FOR SHORTNES S OF BREATH OR WHEEZING 07/16 completed Not Available Not Available Not Available lisinopril 40 mg tablet active Not Available Not Available Not Available cefdinir 300 mg capsule 05/26 completed Not Available Not Available Not Available metformin ER 500 mg tablet,ext ended release 24 hr TAKE 2 TABLETS BY MOUTH TWICE DAILY 02/17 completed Not Available Not Available Not Available clotrimazo le 1 % topical cream APPLY 0.5G TO THE AFFECTED AND SURROUND ING AREAS OF SKIN BY TOPICAL ROUTE 2 TIMES PER DAY IN THE MORNING AND EVENING 07/24 completed Not Available Not Available Not Available sertraline 50 mg tablet TAKE 1 TABLET BY MOUTH EVERY DAY 07/24 completed Not Available Not Available Not Available glipizide 5 mg tablet TAKE 1 TABLET BY MOUTH TWICE DAILY active Not Available Not Available No t Available amoxicilli n 875 mg-potassi um clavulanat e 125 mg tablet TAKE 1 TABLET BY MOUTH TWICE DAILY FOR 12 DOSES 03/31 completed Not Available Not Available Not Available insulin lispro (U-100) 100 unit/mL subcutaneo us pen INJECT 8 TO 13 UNITS UNDER THE SKIN THREE TIMES DAILY BEFORE MEALS active Not Available Not Available No t Available rosuvastat in 20 mg tablet active Not Available Not Available Not Available Pen [place] 31 X 5/16 Use new needle with each insulin injectio n twice daily. 2021 active Not Available Not Available Not Avai lable fenofibrat e 160 mg tablet TAKE 1 TABLET BY MOUTH DAILY 06/18 completed Not Available Not Available Not Available Levemir FlexPen 100 unit/mL (3 mL) solution subcutaneo us insulin pen INJECT 60 UNITS UNDER THE SKIN TWICE DAILY active Not Available Not Available No t Available Mucinex DM 60 mg-1,200 mg tablet,ext ended release 12 hr Take 1 tablet twice a day by oral route for 10 days. 07/16 completed Not Available Not Available Not Available BD Ultra-Fine Fina Pen Needle 32 gauge x 5/32 03/06 completed Not Available Not Available Not Available OneTouch Verio test strips USE FOUR TIMES DAILY active Not Available Not Available No t Available TRUEplus Insulin 0.3 mL 31 gauge x 5/16 syringe USE NEW NEEDLE WITH EACH INSULIN INJECTIO N TWICE DAILY DIRECTED active Not Available Not Available No t Available Trulicity 0.75 mg/0.5 mL subcutaneo us pen injector ADMINIST ER 0.75 MG UNDER THE SKIN EVERY 7 DAYS active Not Available Not Available No t Available OneTouch Verio Flex Meter FOLLOW PACKAGE DIRECTIO NS active Not Available Not Available No t Available Basaglar KwikPen U-100 Insulin 100 unit/mL (3 mL) subcutaneo us INJECT 100 UNITS UNDER THE SKIN TWICE DAILY 06/13 completed Not Available Not Available Not Available TRUEplus Pen Needle 31 gauge x 5/16 USE NEW NEEDLE WITH EACH INSULIN INJECTIO N TWICE DAILY DIRECTED 2021 active Not Available Not Available Not Avai lable TRUEplus Pen Needle 31 gauge x 3/16 USE TWICE DAILY active Not Available Not Available No t Available Humalog Mau KwikPen (U-100) 100 unit/mL subcutaneo us half-unit pen 10 units three times daily before meals 06/13 completed Not Available Not Available Not Available Dexcom G6 Sensor device USE DIRECTED AND CHANGE EVERY 10 DAYS active Not Available Not Available No t Available Dexcom G6 Transmitte r device CHANGE EVERY 90 DAYS active Not Available Not Available No t Available OneTouch Delica Plus Lancet 33 gauge active Not Available Not Available Not Available OneTouch Delica Plus Lancet 30 gauge USE TO CHECK BLOOD SUGAR FOUR TIMES A DAY. active Not Available Not Available No t Available Vitals Date Recorded Body height Body mass index (BMI) Body weight Respiratory rate Body temperature Heart rate Oxygen saturation Oxygen saturation in Arterial blood by Pulse oximetry Systolic blood pressure Diastolic blood pressure Provider Name and Address Organization Details Last Updated DateTime 2 170.18 cm 38.7 kg/m2 687611. 67 g 16 /min 97.1 [degF] 87 /min 97 % 97 % 138 mm[Hg] 88 mm[Hg] Char Pugh [facility] 2 10:16:20 Date Recorded Body temperature Provider Name a or Address Organization Details Last Updated DateTime 10/29/2022 100.7 [degF] Elvia Mckeon LPN [facility] SI 10/29/2022 08:59:13 Date Recorded Body height Body mass index (BMI) Body weight Respiratory rate Body temperature Heart rate Oxygen saturation Oxygen saturation in Arterial blood by Pulse oximetry Systolic blood pressure Diastolic blood pressure Provider Name and Address Organization Details Last Updated DateTime 3 170.18 cm 37.7 kg/m2 946688. 76 g 16 /min 97.1 [degF] 77 /min 96 % 96 % 149 mm[Hg] 99 mm[Hg] Char Pugh [facility] 3 10:06:47 Date Recorded Body height Respiratory rate Body mass index (BMI) Body weight Body temperature Heart rate Oxygen saturation Oxygen saturation in Arterial blood by Pulse oximetry Systolic blood pressure Diastolic blood pressure Provider Name and Address Organization Details Last Updated DateTime 3 170.18 cm 16 /min 37.8 kg/m2 553249. 81 g 97.1 [degF] 88 /min 94 % 94 % 111 mm[Hg] 74 mm[Hg] Char Pugh [facility] 3 09:35:21 Date Recorded Body height Body mass index (BMI) Body weight Oxygen saturation Oxygen saturation in Arterial blood by Pulse oximetry Heart rate Respiratory rate Body temperature Systolic blood pressure Diastolic blood pressure Provider Name and Address Organization Details Last Updated DateTime 3 170.18 cm 38.7 kg/m2 437133. 72 g 96 % 96 % 90 /min 16 /min 97.5 [degF] 113 mm[Hg] 80 mm[Hg] Elvia Mckeon LPN [facility] SIF 3 10:59:01 Social History Question Answer Notes LastModified by Organizat ion Details LastModified Time Tobacco Smoking Status Former Smoker Elvia Mckeon LPN null, [place] [facility] 07/16/2023 11:01:35 What Is Your Level Of Alcohol Consumption? Occasional Information not available 05/26/2018 Are You Blind Or Do You Have Difficulty Seeing? Yes Reading Glasses Information not available 11/28/2020 What Is Your Level Of Caffeine Consumption? Heavy 32oz Soda Daily Information not available 11/28/2020 How Much Tobacco Do You Chew? None Information not available 05/26/2018 In The 14 Days Before Symptom Onset, Have You Had Close Contact With A Laboratory-confir med COVID-19 While That Case Was Ill? No Information not available 11/24/2021 In The 14 Days Before Symptom Onset, Have You Had Close Contact With A Person Who Is Under Investigation For COVID-19 While That Person Was Ill? No Information not available 11/24/2021 Have You Been To An Area Known To Be High Risk For COVID-19? No Information not available 11/24/2021 Are You Currently Employed? Yes Information not available 11/28/2020 Are You Deaf Or Do You Have Serious Difficulty Hearing? No Information not available 11/28/2020 What Type Of Diet Are You Following? REGULAR Information not available 05/26/2018 Which Illicit Or Recreational Drugs Have You Used? None Information not available 08/01/2018 Do You Or Have You Ever Used E-cigarettes Or Vape? Never Used Electronic Cigarettes Information not available 06/13/2020 Education 12 Information no t available 05/26/2018 What Is Your Occupation? [employer] Information not available 11/28/2020 Are There Any Guns Present In Your Home? No Information not available 08/12/2022 Hard Of Hearing Or Deaf In One Or Both Ears? No Information not available 05/26/2018 Legally Blind In One Or Both Eyes? No Information no t available 05/26/2018 Marital Status Informatio n not available 05/26/2018 What Was The Date Of Your Most Recent Tobacco Screening? 07/16/2023 Information not available 07/16/2023 What Is Your Current Pack Years? 30ormorepacky ears Information not available 10/29/2022 What Is Your Relationship Status? Information not available 11/28/2020 Do You Use Your Seat Belt Or Car Seat Routinely? Yes Information not available 11/24/2021 Do You Have Smoke And Carbon Monoxide Detectors In Your Home? Yes Information not available 11/28/2020 Are You Passively Exposed To Smoke? Yes Information no t available 11/28/2020 Do You Or Have You Ever Used Smokeless Tobacco? Never Used Smokeless Tobacco Information not available 06/13/2020 How Much Tobacco Do You Smoke? No Information not available 03/31/2023 General Stress Level Medium Information not available 05/26/2018 Do You Feel Stressed (tense, Restless, Nervous, Or Anxious, Or Unable To Sleep At Night)? [id number] Information not available 11/28/2020 Do You Use Any Illicit Or Recreational Drugs? No Information not available 11/28/2020 Do You Use Sunscreen Routinely? No Information not available 08/12/2022 Has Tobacco Cessation Counseling Been Provided? Yes Information not available 03/31/2023 On What Date Was Tobacco Cessation Counseling Provided? 03/31/2023 Information not available 03/31/2023 Do You Or Have You Ever Used Any Other Forms Of Tobacco Or Nicotine? No Information not available 11/28/2020 Sex: Male Functional Status Question Answer Note LastModified by Organization D etails LastModified Time Are you able to care for yourself? Yes Information n ot available 11/28/2020 What is your exercise level? None Information not available 05/26/2018 Mental Status None recorded. Family History Relationship Description Onset Age of this Age Resolved Age Notes LastModified by Organization Details LastModified Time Father Attention deficit hyperactivit y disorder [email or web address] Not available 03/2017 15:08:27 Father Diabetes mellitus [email or web address] Not available 01/01 15:08:37 Father Hypercholest erolemia [email or web address] Not available 01/01 15:08:46 Father Hypertensive disorder [email or web address] Not available 01/01 15:08:54 Father Coronary arterioscler osis 45 [email or web address] Not available 2019 14:52:34 Mother Hypercholest erolemia [email or web address] Not available 2017 09:09:43 Paternal Grandfather Diabetes mellitus [email or web address] Not available 2017 09:09:53 Paternal Grandmother Diabetes mellitus [email or web address] Not available 2017 09:09:56 Brother Coronary arterioscler osis [email or web address] Not available 2019 14:52:34 Medical History Condition Response Coronary Artery Disease N Other N Atrial Fibrillation N High Blood Pressure Y Kidney or Bladder Problems Y Thyroid Problems N GI Problems N Depression N COPD N Blood Clots N Skin Problems N Anemia N Heart Attack ([place]) N Obstructive Sleep Apnea Y Anxiety Disorder N Diabetes Y Muscle, Joint, or Bone Problems N Seizures/Epilepsy N Acid Reflux (GERD) N Cancer N Stroke N Asthma N Allergies N High Cholesterol Y Hepatitis N Liver Disease N Headaches N Heart Failure N Osteoporosis N Immunizations Vaccine Type Date Status Note Provider Nam e and Address Organization Details Recorded Time Influenza, split virus, quadrivalent, preservative 5 completed GENA LOMELI NP Attn: [employer] [place], [address], [facility] 10/29/2022 08:19:04 Influenza, split virus, quadrivalent, preservative 8 completed Not Available [facility] 10/14/2019 02:42:31 Influenza, split virus, trivalent, preservative 4 completed WILBUR [place], [place] - [facility] 10/19/2014 16:11:50 Past Encounters Encounter ID Performer Location Encounter Start Date Encounter Closed Date Diagnosis/Indication Diagnosis SNOMED-CT Code Diagnosis ICD10 Code Diagnosis Note [id number] [facility] ([facility]) [address] [place] [address] 10/19/2014 15:25:52 10/19/2014 17:02:00 Diabetes mellitus [id number] Home BS improving as per pt, yet to do labs. On metformin 1G bid + Lantus 30 bid SQ. Diet control and exercise emphasized . F/u with eye and foot providers. Essential hypertension 82024718 Controlled . Ct same. Low salt diet. Obesity 219508325 Recomm end to loose weight with diet control and exercise. [id number] YUN Pacheco ([facility]) [address] [place] [address] 01/23/2015 10:41:42 01/23/2015 12:25:47 Diabetes mellitus 28814925 Home BS 150-250, A1c 9.1. Increase Lantus to 35units BID SQ. Add glipizide 5mg bid. Ct with metformin 1G bid. Call us with BS readings in 1-2 weeks, if < 70 consistent ly call right away. Please stop soda completely and do more exercise. Refer to eye and station attendant . Essential hypertension 74654498 Controlled . Ct same. Low salt diet. Hypertriglyceridemia 974393443 May be due to uncontroll ed BS. Loose weight and avoid complex sugars. Add fenofibrat e at dinner. Obesity 457682529 Recomm end to loose weight with diet control and exercise. Liver func tion tests outside reference range 424681983 May be due to fatty liver. r/o hepatitis. No local symptoms. Do labs today before you leave [id number] [facility] ([facility]) [address] [place] [address] 07/02/2015 14:07:52 07/02/2015 15:12:51 Diabetes mellitus 34416921 E11.9 Home BS 150-250, A1c 9.1. Increased Lantus to 35units BID SQ. Add glipizide 5mg bid. Ct with metformin 1G bid last time niow BS somewhat better. Check A1c by next visit.Call us with BS readings in 1-2 weeks, if < 70 consistent ly call right away. Please stop soda completely and do more exercise. Refer to eye and station attendant . Essential hypertension 34220979 I10 Controlled [address] same. Low salt diet. Sleep payal cata disturbance 18581220 G47.9 R/O KERRI. Refer May take furosemide as needed with K pill for water retention as needed. Hypercholesterolemia [address] same with low cholestero l diet. Obesity 323253349 E66.9 Recommend to loose weight with diet control and exercise. Needs infl uenza immunization 358509099 Z28.3 No issues in the past [id number] Zay Edwards MD [facility] ([facility]) [address] [place] [address] 01/24/2016 16:23:14 01/27/2016 07:46:29 Essential hypertension 87294275 I10 [address] same. Low salt diet. Diabetes mellitus 249951 09 E11.9 Home BS 200-250, A1c 9.8. Increased Lantus to 50units BID SQ. Replace glipizide with amaryl 2mg daily. Ct with metformin 1G bid last time niow BS somewhat better. Check A1c by next visit.Call us with BS readings in 1-2 weeks, if < 70 consistent ly call right away. Please stop soda completely and do more exercise. Refer to eye and station attendant . Hypertriglyceridemia 302 152605 E78.1 May be due to uncontroll ed BS. Loose weight and avoid complex sugars. Ct fenofibrat e at dinner. Lovastatin for anti inflammtor y issues Vitamin D deficiency 347 20983 E55.9 Weekly for 12 wks sent Obstructiv e sleep apnea syndrome 18752749 G47.33 Pl f/u with your provider Obesity 852686708 E66.3 Recommend to loose weight with diet control and exercise. [id number] [facility] [address] [place] [address] 01/01/2017 14:51:04 01/01/2017 16:24:46 Diabetes mellitus 92337212 E11.9 Liver func tion tests outside reference range 518154034 R94.5 Sleep payal cata disturbance 43502800 G47.9 He will f/U with sleep medicine specialist . Hypertriglyceridemia 302 754064 E78.2 Diabetic, low saturated diet, avoid alcohol, exercise and lose weight. Vitamin D deficiency 347 30481 E55.9 Hypertensive disorder 38 947203 I10 Low salt diet., lose weight, exercise. Obesity 818428745 E66.9 Diabetic, low saturated fat diet, exercise and lose weight. Obstructiv e sleep apnea syndrome 23841442 G47.33 [id number] MD Lisa Vargas (Adult Med) [address] [place] [address] 05/20/2017 16:00:08 05/20/2017 17:53:26 Hypercholesterolemia 56839626 E78.2 Low saturated fat diet, exercise,l ose weight. On sulin and fenofibrat e. Liver func tion tests outside reference range 677375688 R94.5 Due to fatty liver. Lose weight and exercise,. Hypertriglyceridemia 302 633194 E78.2 Diabetic, low saturated diet, avoid alcohol, exercise and lose weight. Vitamin D deficiency 347 73040 E55.9 Hypertensive disorder 38 892231 I10 Low salt diet., lose weight, exercise. Obesity 698695909 E66.9 Diabetic, low saturated fat diet, exercise and lose weight. Diabetes mellitus 034020 09 E11.9 diabetic diet, exercise, lose weight. Obstructiv e sleep apnea syndrome 09511585 G47.33 No results available. 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 Vitamin D deficiency 347 23966 E55.9 h/o low vit D. Will get most recent labs from prior PCP, but says it has been over a year, will repeat labs at next visit once he starts taking meds more consistent ly Diabetes mellitus 118749 09 E11.9 reviewed ER/hospita l admission records, A1c 9.4%. Discussed goal of getting it to 7.5% or less, start by taking meds consistent ly, otherwise it will be difficult to know how to adjust meds. He admits he has not been compliant and meds were increased based on labs when he wasn't taking meds. Advised him to monitor for sxs of hypoglycem ia, he denies any since d/c from hospital. Discussed importance of keeping log, bring either that or his meter to next appt to review glucose levels. Needs to have DM retinopath y check. Blood in urine 47762078 R31.9 reviewed hospital notes, labs and CT abd/pelvis . discussed other causes such as prostatiti s. Recommend he see urology since he has had several episodes in last 7 yrs and a h/o nephrolith iasis, UTI and DM. Mixed hyperlipidemia 267 648459 E78.2 Restart meds, follow low fat diet and control blood sugars. 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 Mixed hyperlipidemia 267 237850 E78.2 restarted lovastatin , not fasting this AM. Hasn't had lipid check since 2016. Advised on weight loss, heart healthy diet, portion control. Body mass index 30+ - obesity 647057445 Z68.39 Given handout for 1800 rudy meal plan w/ serving size recommenda tions. Diabetes mellitus 721117 09 E11.9 Reports glucose are in high 100s, was not aware last a1c in hospital was 9.4%, in past was 7.5%. Discussed goal of getting back to 7.5% or lower. Recommend improving diet, portion control, weight loss. 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 No x-rays in past. We will get imaging, advised him to start PT and Blood in urine 28556280 R31.9 pt reports he was seen by LATISHA and [facility], no findings for cause of hematuria Chronic low back pain 27 3065383 M54.5 We will ask for med records from provider who did CT of L-spine few years ago. Advised him to work on weight loss through portion control. [id number] CHRISTIANE Mercado (Adult Med) [address] [place] [address] 09/12/2018 10:30:29 09/13/2018 12:56:33 Osteoarthritis of knee 756957654 M17.0 Completed PT, encouraged him to cont HEP. He will call in new year for ortho referral, but not sure if his insurance will be accepted. May need to go to [facility]. Work on 5-10 lb weight loss Diabetes mellitus 307859 09 E11.9 Not checking blood sugars lately; last A1c in hospital was 9.4%, discussed goal A1c of <7.5%. Advised on lower carb intake, try to avoid eating late at night. Focus on lean protein intake Essential hypertension 63024987 I10 fair control, cont current meds, work on 5-10lb weight loss Hypertriglyceridemia 302 209296 E78.2 no lipids checked this past year Vasectomy requested 1839 67100 Z30.2 never heard back from [facility] after initial assessment to get cystoscopy , prior provider went on maternity leave, would like to get vasectomy. He and have 5 children and not interested in having any more. [id number] Marbella Galicia 14 IM [address] [facility] [address] [place] [address] 10/04/2019 13:50:41 10/05/2019 12:19:26 Essential hypertension 43064215 I10 Was on Lisinopril -HCTZ 20-12.5mg. Out of meds for months. BP 148 / 90 - resume Lisinopril 20mg daily. Diabetes mellitus 235066 09 E11.9 Dx 2016, hospitaliz ed. No complicati ons. Has been having blurry vision - refer to opthalmolo gy. Was on Basaglar 100U BID, Metformin 1000g BID, glimepirid e. A1C 11.4.Titra te Basaglar up from 50U BID to 100U BID (goal is 300s). Hold oral meds for now. RTC 1mo. Has Glucometer at home - check once a day Mixed hyperlipidemia 267 436227 E78.2 Was on Fenofibrat e and lovastatin - resume Obstructiv e sleep apnea syndrome 71525972 G47.33 Saw [facility] sleep med - reviewed note, supposed to be on CPAP. Daytime fatigue. Refer back. Mood disorder 13884610 F 39 PHQ 9 = 15 / ANNAMARIE 7 = 15.No prior hx. Was at [place] yesterday for depression - pending counseling and psychiatri st.Trip to father in law recently and mood changed. Uncontroll able crying, irritable. Affecting job. Recalling divorce 20 years ago. Start Zolof and Hydroxyzin e. Will see sleep med. Vitamin D deficiency 347 82208 E55.9 Adult heal th examination 827262350 Z00.00 Declined Flu shot [id number] Marbella Galicia 14 IM [address] [facility] [address] [place] [address] 11/03/2019 08:42:29 11/06/2019 12:05:06 Diabetes mellitus 88022803 E11.9 Dx 2016, hospitaliz ed. No complicati ons. Has been having blurry vision - refer to opthalmolo gy. Was on Basaglar 100U BID, Metformin 1000g BID, glimepirid e.A1C 11.4.Titra te Basaglar up from 50U BID to 100U BID (goal is 300s). Hold oral meds for now. RTC 1mo. Has Glucometer at home - check once a day Addendum: 300's with Levemir 100U BID. Add Admelog 10U QAC. RTC 2mo. Mood disorder 73746047 F 39 PHQ 9 = 15 / ANNAMARIE 7 = 15.No prior hx. Was at [place] yesterday for depression - pending counseling and psychiatri st.Trip to father in law recently and mood changed. Uncontroll able crying, irritable. Affecting job. Recalling divorce 20 years ago. Start Zolof and Hydroxyzin e. Will see sleep med. Addendum: Less irritable with Zolof 25mg. Inc to 50mg. [id number] GENA LOMELI NP [facility] [address] [place] [address] 06/13/2020 14:52:49 06/15/2020 12:02:00 Diabetes mellitus 36836369 E11.9 - Educated on goal of blood sugars (A1C of 7% and fasting of 80-130) and informatio n below. Postprandi al BG of less than 180. - Encouraged weight loss and diet changes. - Monitor BP with goal of <130/80. - Stop smoking. - Continue statin and next level due {{3 months 6 months * 1 year}} - Eye exam yearly and dentist regularly. Next A1C due {{ 1 month 2 months 3 months * 6 months}} - RTC or call if blood sugars not controlled . - Check feet daily and notify PCP immediatel y of abnormalit y. - Take ASA daily. - F/U in {{1 week 2 weeks 1 month 3 months * 6 months }} Essential hypertension 83672361 I10 - b/p in office today 124/86- Continue medication as prescribed and diet/exerc ise as previously discussed. - Take occasional BP s, call if consistent ly >140/90. - Discussed reasons for sooner f/u than 3 months. - Patient verbalizes understand ing. Hypercholesterolemia 136 81668 E78.00 - Educated on risks factors, and healthy lifestyle. - Handout provided on lifestyle modificati ons .- Continue statin as prescribed , possible side-effec ts discussed with patient.- RTC in 3 months Rash of genitalia 408600 002 R21 - multiple erythemato us tender open lesion noted on penis. thin white substance noted around head of penis- Most likely yeast infection of penis given patient history of DM2, however will r/o HSV, and treat for yeast infection Body mass index 40+ - severely obese 093801029 Z68.41 - d/w patient importance of implementi ng some sort of exercise regimen at least 20-30 minutes activity/d ay, watching her diet and eating breakfast as this has shown to be most effective for skilled nursing maintenanc e of weight loss. [id number] GENA LOMELI NP [facility] [address] [place] [address] 11/28/2020 14:47:25 11/29/2020 14:37:26 Body mass index 40+ - severely obese 221063386 Z68.41 - d/w patient importance of implementi ng some sort of exercise regimen at least 20-30 minutes activity/d ay, watching her diet and eating breakfast as this has shown to be most effective for skilled nursing maintenanc e of weight loss. Mood disorder 01565146 F 39 - rx refill Mixed hyperlipidemia 267 170368 E78.2 - Educated on risks factors, and healthy lifestyle. - Continue statin as prescribed , possible side-effec ts discussed with patient. Essential hypertension 52589030 I10 - b/p in office today 128/98- Continue medication as prescribed and diet/exerc ise as previously discussed. - Take occasional BP s, call if consistent ly >140/90. - Discussed reasons for sooner f/u than 3 months. - Patient verbalizes understand ing. Bilateral knee pain 1187 653118 4568996 M25.561 M25.562 - Will order x-ray. - Educated on RICE method and OTC treatments . - Patient to RTC if condition worsens or does not improve. - Will call results of x-ray to patient. Diabetic p eripheral neuropathy 962834195 E11.40 - Educated on goal of blood sugars (A1C of 7% and fasting of 80-130) and informatio n below. Postprandi al BG of less than 180. - Encouraged weight loss and diet changes. - Monitor BP with goal of <130/80. - Stop smoking. - Continue statin and next level due {{3 months 6 months * 1 year}} Eye exam yearly and dentist regularly. Next A1C due {{ 1 month 2 months 3 months * 6 months}} - Next microalbum in due {{ 2 months 3 months 6 months* 9 months 1 year}} - RTC or call if blood sugars not controlled . - Check feet daily and notify PCP immediatel y of abnormalit y. - Take ASA daily. - F/U in {{1 week 2 weeks 1 month 3 months * 6 months }} [id number] GENA LOMELI NP [facility] [address] [place] [address] 03/06/2021 14:52:54 03/07/2021 16:12:03 Essential hypertension 09962989 I10 - b/p in office today 130/90 - Continue medication as prescribed and diet/exerc ise as previously discussed. - Take occasional BP s, call if consistent ly >140/90. - Discussed reasons for sooner f/u than 4 months. - Patient verbalizes understand ing. Uncontroll ed type 2 diabetes mellitus 756988339 E11.65 - Patient stated he has his first appointmen t to see Dr. Murry on 03/24 Right lowe r quadrant pain 498258956 R10.31 [id number] GENA LOMELI NP [place] [address] IM [address] [facility] [address] [place] [phone] 10/09/2021 09:14:23 10/14/2021 10:46:38 Essential hypertension 80962228 I10 - last recorded b/p 130/90 (02/2021 - Continue medication as prescribed and diet/exerc ise as previously discussed. - Take occasional BP s, call if consistent ly >140/90. - Discussed reasons for sooner f/u than 1 month. - Patient verbalizes understand ing. Mood disorder 42525978 F 39 - rx refill Uncontroll ed type 2 diabetes mellitus 592161303 E11.65 - Dr. Nelson following and managing care [id number] GENA LOMELI NP [place] [facility] IM [address] [facility] [address] [address] 11/24/2021 16:50:33 11/25/2021 15:14:43 Essential hypertension 11146156 I10 - last recorded b/p 130/90 (02/2021 - Continue medication as prescribed and diet/exerc ise as previously discussed. - Take occasional BP s, call if consistent ly >140/90. - Discussed reasons for sooner f/u than 1 month. - Patient verbalizes understand ing. Uncontroll ed type 2 diabetes mellitus 992424353 E11.65 - Patient states he no longer sees Dr. enlson. Patient states he was not happy with Dr. Nelson care Noncomplia nce with medication regimen 825831102 Z91.14 patient not taking medication as prescribed . Noncomplia nce with treatment 1216601 Z91.19 patient does not follow diabetic diet, patient top seeing endocrinol ogist stating he was not happy with provider Blaine gutierrez [address]94[address] 007 B37.42 [id number] GENA LOMELI NP [facility] [address] [place] [address] 07/24/2022 15:55:59 07/27/2022 14:58:55 Uncontrolled type 2 diabetes mellitus 987267943 E11.65 - Patient did not follow through with seeing endocrinol ogist. Dwp the importance of scheduling and keeping appointmen t with endocrinol ogist. Patient voiced understand ing. Essential hypertension 34563982 I10 - last recorded b/p 134/84 - Continue medication as prescribed and diet/exerc ise as previously discussed. - Take occasional BP s, call if consistent ly >140/90. - Discussed reasons for sooner f/u than 3 month. - Patient verbalizes understand ing. Obesity 557159874 E66.9 advised low fat, low cholestero l, low carb diet, regular exercise and weight reduction. Noncomplia nce with medication regimen 852496662 Z91.14 patient not taking medication as prescribed . [id number] GENA LOMELI NP [facility] [address] [place] [phone] 08/12/2022 09:45:58 08/25/2022 13:50:06 Uncontrolled type 2 diabetes mellitus 170842128 E11.65 - Patient did not follow through with seeing endocrinol ogist. Dwp the importance of scheduling and keeping appointmen t with endocrinol ogist. Patient voiced understand ing. Administra tive reason for encounter 388522045 Z02.9 - Patient requesting a compliance letter clearing him to keep his job. 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 [id number] Hero Johnson MD [place] [address] 10/29/2022 08:34:33 10/30/2022 10:58:42 Viral gastroenteritis 694057340 A08.4 - Advised BRAT diet - Advised to ensure he is drinking plenty of water and that her eating at this time is not important to me as long as she's drinking plenty of water - Advised to return to ER for new or worsening symptoms. Respirator y tract congestion and cough 749191953 R05.9 - Continue antibx- Drink lots of fluids, mainly water.- For sore throat, gargle warm salt water.- Get extra rest and do not over-exert yourself - Always present to ER or Urgent Care with any progressio n of/alarmin g symptoms, significan t changes in symptoms or any concerning or urgent matters. VU [id number] GENA LOMELI NP [facility] [address] [place] [phone] 02/17/2023 09:55:15 02/25/2023 08:55:32 Essential hypertension 42783045 I10 - b/p in office today 149/99- Continue medication as prescribed and diet/exerc ise as previously discussed. - Take occasional BP s, call if consistent ly >140/90.- Discussed reasons for sooner f/u than 2 months.- Patient verbalizes understand ing. Obesity 685498066 E66.9 advised low fat, low cholestero l, low carb diet, regular exercise and weight reduction. Diabetes mellitus 769293 09 E11.9 - MICROBIOLOGY PROFESSOR Asha following and managing care. [id number] GENA LOMELI NP [facility] [address] [place] [address] 03/31/2023 09:27:39 04/02/2023 15:32:19 Essential hypertension 20367022 I10 - b/p in office today 111/74- Continue medication as prescribed and diet/exerc ise as previously discussed. - Take occasional BP s, call if consistent ly >140/90.- Discussed reasons for sooner f/u than 2 months.- Patient verbalizes understand ing. Obesity 525510789 E66.9 advised low fat, low cholestero l, low carb diet, regular exercise and weight reduction. [id number] GENA LOMELI NP [place] [address] [address] 07/16/2023 10:45:43 07/19/2023 11:43:29 Bilateral shoulder joint pain [id number] 6364903 M25.511 M25.512 - Counseled on shoulder pain, testing, medication s. Alternate Ice/heat to area. Obesity 016875613 E66.9 advised low fat, low cholestero l, low carb diet, regular exercise and weight reduction. Essential hypertension 89293914 I10 - b/p in office today 113/80- Continue medication as prescribed and diet/exerc ise as previously discussed. - Take occasional BP s, call if consistent ly >140/90.- Discussed reasons for sooner f/u than 6 months.- Patient verbalizes understand ing. Uncontroll ed type 2 diabetes mellitus 423230474 E11.65 - MICROBIOLOGY PROFESSOR Asha following and managing care. Health Concerns Section Related Observation LastModified by Organization Detai ls LastModified Time None Recorded Concern Status LastModified by Organization Details LastModified Time None Recorded Advance Directives Directive None Recorded Payers Encounter Date Sequence Insurance Name Policy Number Policy Gore Covered Member ID Gore Member ID Guarantor Name 08/12/2022 1 [facility] ON OR AFTER 03/27/21 (MEDICAID REPLACEMENT - HMO) Kendrick Keller [id number] Kendrick Keller 10/29/2022 1 [facility] ON OR AFTER 03/27/21 (MEDICAID REPLACEMENT - HMO) Kendrick Keller [id number] Kendrick Keller 02/17/2023 1 [facility] ON OR AFTER 03/27/21 (MEDICAID REPLACEMENT - HMO) Kendrick Keller [id number] Kendrick Keller 03/31/2023 1 [facility] ON OR AFTER 03/27/21 (MEDICAID REPLACEMENT - HMO) Kendrick Keller [id number] Kendrick Keller 07/16/2023 1 [facility] ON OR AFTER 03/27/21 (MEDICAID REPLACEMENT - HMO) Kendrick Keller [id number] Kendrick Keller Notes Date Note Type Note Provider Name and Address Organization Details Recorded Time 08/12/20 22 text/htm l Mr. Keller came into the office, requesting a compliance letter that would allow him to keep his job. 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 GENA LOMELI NP Attn: Accounting,[address] [place] [address], [phone], [facility] 08/25/2022 08:32:44 10/29/19 23 text/htm l Upper Respiratory SymptomsReported bypatient.Location:head; chest Quality:productive cough;congested Severity:moderate Duration:symptoms lasting over 2 weeks Context:no sick contacts; no foreign travel;smoker Associated Symptoms:fever;morning cough;vomiting;diarrhea Mr. Keller presented via telephone communication for ER f/u appointment. [facility] with c/o vomiting, fever, and tooth abscess. Patient prescribed antibiotics and discharged. Patient reports he just picked up the antibiotic prescribed by both the hospital and his dentist. Patient reports no change in symptoms, still having chills, cough, congestion, body aches and diarrhea. Hero Johnson MD Attn: [facility],[address] [place], [address], [facility] 11/02/2022 13:26:19 02/18/20 23 text/htm l Hypertension F/UReported bypatient.Associated Symptoms:no dizziness; no lightheadedness; no chest pain; no shortness of breath; no palpitations; no edema Medications:taking medications as directed Mr. Keller presented in office today for f/u appointment. GENA LOMELI NP Attn: Accounting,[address] [place], [address], [facility] 02/24/2023 21:51:00 03/31/20 23 text/htm l Hypertension F/UReported bypatient.Associated Symptoms:no dizziness; no lightheadedness; no chest pain; no shortness of breath; no palpitations; no edema Medications:taking medications as directed; no side effects from medication Mr.. Keller presented in office today for f/u appointment. GENA LOMELI NP Attn: Accounting,[address] [place], [address], [facility] 03/31/2023 09:44:22 07/16/20 23 text/htm l Diabetes F/UReported bypatient.Labs:last A1C result: 7.2 (04/29/2023) Context:normal range of home blood sugars (in the low 100s); not missing doses of medications; no side effects from medicationsHypertension F/UReported bypatient.Associated Symptoms:no dizziness; no lightheadedness; no chest pain; no shortness of breath; no palpitations; no edema Medications:taking medications as directed; no side effects from medicationShoulderReported bypatient.Location:bilateral Quality:aching; throbbing; worsening Severity:moderate Duration:3-4 weeks Timing:chronic Context:overuse Alleviating Factors:nothing helps Aggravating Factors:lifting; ROM Associated Symptoms:no weakness; no swelling; no redness;numbness(finger both hands) Mr. Keller presented in office today c/o bilateral shoulder pain. The patient reports that he has experienced shoulder pain for five years, and during the last three to four weeks, it has gotten worse GENA LOMELI NP Attn: Accounting,[address] [facility], [place], [address], [facility] 07/16/2023 11:57:22
--- OUTSIDE RECORDS SUMMARY | 2024-11-15 15:18 | XMS_ITS | Clinical Summary ---
Author Organization [facility] Address [address] [place] [address] Care Team Providers Care Furniture Decals Inspector Name Role Phone Gena Dill NP Primary Care Provider [phone] Allergies No known active allergies Medications OneTouch [...] to also try seeking care with an dancing instructor. Assessment & Plan (02/11/2023 1:47 PM CDT): [...] to also try seeking care with an dancing instructor. Assessment & Plan (02/10/2023 5:46 PM CDT): [...] 01/15/2022 Assessment & Plan (10/26/2023 10:36 AM TUBING DRIER): Start Sildenafil Vasectomy evaluation 01/15/2022 COVID-19 05/26/2021 Type 2 diabetes mellitus wit h hyperglycemia, with long-term current use of insulin 05/19/2018 Assessment & Plan (10/26/2023 10:35 AM TUBING DRIER): Hba1c was Lab Results Component Value Date [...] on DM eye exam; had 01/2023 at [facility]. Letter sent to get copy of [...] & Lipid today. Verified that he uses [facility]. Aware to check results/results letter in [facility]. Will contact by phone if needed. Will try to get Ozempic again. 0.25mg weekly for 2 weeks. Then increase to 0.5mg weekly. Current medications: Metformin 1000mg twice daily before meals Ozempic 0.25mg weekly x2 weeks then increase to 0.5mg weekly T-Slim with CIQ BR 12a 1.6 CR 6 CF 25 T 110 AIT 5 hours Assessment & Plan (10/15/2022 2:07 PM TUBING DRIER): Hba1c was Lab Results Component Value Date [...] 05/19/2018 Assessment & Plan (10/26/2023 10:36 AM TUBING DRIER): Increased CV in DM pts discussed Start [...] need outpatient urology follow-up for possible cystoscopy. Medical History Medical History Date Comments Diabetes mellitus (HCC) Hypertension Family History Medical History Relation Name Comments Diabetes Father Hypertension Father Hypertension Mother Relation Name Status Comments Father Mother Social History Tobacco Use Types Packs/Day Years [...] on file Legal Sex Male 12:29 AM TUBING DRIER Gender Identity Not on file Sexual Orientation Not on file Obstetrics History Last Filed Vital Signs Vital Sign Reading Time Taken Comments Blood Pressure 120/70 10/26/2023 9:53 AM TUBING DRIER Pulse 92 10/26/2023 9:53 AM TUBING DRIER Temperature 36.4 C (97.5 F) 02/13/2023 10:51 AM CDT Respiratory Rate 18 10/26/2023 9:53 AM TUBING DRIER Oxygen Saturation 98% 02/13/2023 10: 51 AM CDT Inhaled Oxygen Concentration - - Weight 113.1 kg (249 lb 4.8 oz) 10/26/2023 9:53 AM TUBING DRIER Height 170.2 cm (5' 7.01 ) 10/26/2023 9:53 AM CS T Body Mass Index 39.03 10/26/2023 9:53 AM TUBING DRIER Plan of Treatment Health Maintenance Due Date Last Done Comments Colon Cancer Screening-Colonoscopy 1975 Depression Screening 1975 Hepatitis C Screening 1975 DTaP/Tdap/Td Vaccine (1 - Tdap) 1986 Hepatitis B Screening 1993 Regular Well Visit/Exam 18-64 1993 Pneumococcal vaccine <65 (1 of 2 - PCV) 1994 Albumin Creatinine Ratio, Urine 01/15/2024 Foot Exam 01/15/2024 01/14/2023, 03/24/2021 Lipid Panel 01/15/2024 01/14/2023, 11/29/2020 eGFR 02/14/2024 02/13/2023, 01/25, 02/11/2023, Additional history exists Dilated Eye Exam 02/19/2024 02/18/2023 Hemoglobin A1C 04/25/2024 10/26/2023, 06/28, 04/29/2023, Additional history exists Influenza Vaccine (#1) 2024 8, 07/02/2015, 07/20/2014 Procedures Procedure Name Priority Date/Time Associated Diagnosis Comments POCT HEMOGLOBIN A1C Routine 10/26/2023 9 :53 AM TUBING DRIER Type 2 diabetes mellitus with hyperglycemia, with long-term current use of insulin (CMS/HCC) ([facility]) HM DIABETES EYE EXAM Routine 02/18/2023 8:38 AM CDT EGFR Routine 02/13/2023 5:23 AM CDT LIPID PANEL Routine 01/14/2023 9:50 AM CDT Type 2 diabetes mellitus with hyperglycemia, with long-term current use of insulin (CMS/HCC) ([facility]) ALBUMIN CREATININE RATIO, URINE Routine 01/14/2023 9:50 AM CDT Type 2 diabetes mellitus with hyperglycemia, with long-term current use of insulin (CMS/HCC) (HCC) from Last 3 Months or Most Recently Relevant to Health Maintenance Results * (ABNORMAL) POCT hemoglobin A1c (10/26/2023 9:53 AM TUBING DRIER) Hemoglobin A1C, POC 6.3 % Blood spot 10/26/2023 9:53 AM TUBING DRIER Judah Morales MD POINT OF CARE TEST ORDERABLES Fi nal Result * HM DIABETES EYE EXAM (02/18/2023 8:38 AM CDT) Lisa Diaz MD HEALTH MAINTENANCE Edited Result - Final * [...] 5:23 AM CDT 02/13/2023 5:26 AM CDT Carrie Lynch MD LAB BLOOD ORDERABLES Lana l Result [facility] ([place]) 1 [facility] Department of Laboratories [place] [id number] * (ABNORMAL) Albumin Creatinine Ratio, Urine (01/14/2023 [...] NP LAB URINE ORDERABLES Lana l Result [facility] [address] [address] Department [place] [address] * (ABNORMAL) Lipid panel (01/14/2023 9:50 AM CDT) Cholesterol 204(H) 30 - 199 mg/dL [facility] Comment: Interpretive Data Ages < or = [...] on 2018. Triglycerides 292(H) <=149 mg/dL [facility] Comment: Interpretive Data Ages < or = [...] revised on 2018. Chol/HDL ratio 5 [facility] Blood 01/14/2023 9:50 AM CDT 01/14/2023 2:58 PM CDT us Senia Barry NP LAB BLOOD ORDERABLES [place] [address] [address] Department [place] [address] from Last 3 Months or Most Recently Relevant to Health Maintenance Insurance [facility] Advance Directives For more information, please contact: [phone] * Full Code (Latest Code Status on File) Date Activated Date Inactivated Comments 02/10/2023 5:12 AM 02/13/2023 4:56 PM * Full Code Date Activated Date Inactivated Comments 05/19/2018 2:03 PM 05/21/2018 4:13 PM Care Teams Furniture Decals Inspector Relationship Specialty Start Date End Date Gena Dill NP [address] [address] PCP - General Family Medicine 03/03/21
[2024-11-15 15:22] VITALS: BP 148/88; PULSE 106; RESP 18; TEMP 36.1; O2SAT 100
--- NOTE | 2024-11-15 15:40 | ED.URI ---
HPI - URI/Sore Throat General Chief Complaint: Upper Respiratory Infection Stated Complaint: nausea/chills/aches Time Seen by Provider: 11/15/24 15:37 Source: patient and RN notes reviewed Mode of arrival: ambulatory Limitations: no limitations History of Present Illness HPI Narrative: 49-year-old male presents with concern for fever, chills, sweating, diarrhea and body aches that started today when he woke up 2 hours ago. He denies taking any medication for his symptoms. He reports he is a diabetic and has been out of his medication, he just picked it up today but has not taken any yet. MD elicited complaint: fever Related Data Home Medications ?Medication ?Instructions ?Recorded ?Confirmed ?Last Taken ?Type insulin detemir U-100 100 unit/mL 100 unit subcut BID 08/19/21 03/13/22 Unknown History (3 mL) subcutaneous pen (Levemir FlexTouch U-100 Insulin) metformin 500 mg tablet,extended 1,000 mg PO BID 08/19/21 03/13/22 Unknown History release 24 hr insulin lispro 100 unit/mL 100 ea subcut TID 03/13/22 03/13/22 Unknown History subcutaneous pen lisinopril 20 mg tablet 20 mg PO DAILY 03/13/22 03/13/22 Unknown History Allergies Allergy/AdvReac Type Severity Reaction Status Date / Time No Known Allergies Allergy Verified 11/15/24 15:33 Review of Systems Review of Systems: CONSTITUTIONAL: Reports malaise, chills, sweats EYES: Denies visual changes, redness, or discharge. ENT: Denies rhinorrhea, congestion, sinus pain, otalgia and sore throat. CARDIOVASCULAR: Denies chest pain, palpitations, or edema. RESPIRATORY: Denies cough. Denies dyspnea. GASTROINTESTINAL: Denies abdominal pain, nausea, vomiting, diarrhea SKIN: Denies rash or itching. MUSCULOSKELETAL: Reports myalgia. NEUROLOGIC: Denies headache. All systems reviewed & are unremarkable except as noted in HPI and below PMFSH Past Medical History Medical History Diabetes Hypertension Social History Social History (Updated 08/19/21 @ 19:50 by Montserrat Madsen, ROTARY DRYER OPERATOR) Living arrangements: with family Gender identity (if verbalized by the patient): Male Comments At time of signature, agree with nursing past medical, surgical, social and family history. There is no relevant family history pertinent to the presenting complaint Exam Narrative: GENERAL: Nontoxic-appearing, well-nourished, and in no acute distress. HEAD: Normocephalic EYES: PERRLA, conjunctivae clear ENT: Nares clear. Mucous membranes moist. TM pearly sherman with sharp light reflex bilaterally; no tragal tenderness. Oropharynx not erythematous without lesions. Tonsils not enlarged and without exudate, no drooling, no hoarseness, no trismus, uvula midline. NECK: Supple. No lymphadenopathy CHEST: Clear to auscultation, breath sounds equal. No wheezing, rhonchi, rales, or stridor. No respiratory distress, speaks in full sentences. HEART: Regular rate and rhythm. No murmur heard. SKIN: Warm, dry, no rash. NEURO: Alert and oriented x3. PSYCH: Normal mood and affect Course Course Emergency Course: Patient is aware of diagnosis, understands and agrees to treatment plan. Anticipatory guidance given. Patient agrees to follow-up as directed and is aware of reasons to seek care at the emergency department. Portions of this record may have been created with voice recognition software Level of Care: Express Care Visit Vital Signs Vital signs: Vital Signs Temperature 97 F L 11/15/24 15:22 Pulse Rate 106 H 11/15/24 15:22 Respiratory Rate 18 11/15/24 15:22 Blood Pressure 148/88 H 11/15/24 15:22 Pulse Oximetry 100 11/15/24 15:22 Oxygen Delivery Room Air 11/15/24 15:22 Temperature 97 F L 11/15/24 15:22 Pulse Rate 106 H 11/15/24 15:22 Respiratory Rate 18 11/15/24 15:22 Blood Pressure 148/88 H 11/15/24 15:22 Pulse Oximetry 100 11/15/24 15:22 Oxygen Delivery Room Air 11/15/24 15:22 Reviewed. MDM - URI/Sore Throat MDM Narrative Medical decision making narrative: Differential diagnosis considered: Barlow virus, strep pharyngitis, allergic rhinitis, upper respiratory tract infection, sinusitis, rhinosinusitis, nasopharyngitis. viral pharyngitis, otitis media, otitis externa, pneumonia, bronchitis, viral cough syndrome, viral syndrome, and influenza. Exam findings show no acute concerns or changes; patient is non-toxic appearing and is in no distress. Patient is appropriate for outpatient treatment and follow-up. Lab Data Attestation: I reviewed the patient's lab results. Critical Care Time Critical Care Time Critical Care Time: No Discharge Plan Discharge Clinical Impression: Influenza-like illness Patient Disposition: Home, Self-Care Condition: Stable Instructions: Viral Syndrome (ED) Additional Instructions: Please take your insulin when you get home according to your doctor's orders. If your blood sugar does not go down you should go to the emergency room for further management. -Take strict precautions to prevent the spread of your virus. Be diligent about covering your cough (even when you are alone) and washing your hands frequently. -You may contagious until you have been symptom and/or fever free for 24 hours without fever reducing medicine -Alternate Ibuprofen and Tylenol for pain and fever relief (per package directions) -suture we fed urine for nasal congestion, Mucinex DM for cough -Drink plenty of fluid - drink fluid with electrolytes such as Gatorade or other oral re-hydration solution. Avoid caffeine, which can make dehydration worse. -Get plenty of rest to help your body heal. -Use a cool mist humidifier for chest and nasal congestion. -Eat RAW honey or use cough drops to ease throat discomfort -Do not smoke or expose children to secondhand smoke -Wash your hands frequently. -Please follow-up with your primary care doctor in the next 1-2 days if your symptoms do not improve. -If you have any worsening of symptoms or any other concerns please go to the ED immediately. -Please take medications as prescribed and continue taking your home medications as usual. Patient Language: Grenadian Prescriptions: No Action insulin lispro 100 unit/mL insulin pen 100 ea SUBCUT TID lisinopril 20 mg tablet 20 mg PO DAILY albuterol sulfate 90 mcg/actuation HFA aerosol inhaler 2 puff INHALATION QID PRN (Reason: shortness of breath or wheezing) Qty: 8 0RF prednisone 20 mg tablet 20 mg PO DAILY Qty: 5 0RF Levemir FlexTouch U100 Insulin 100 unit/mL (3 mL) insulin pen 100 unit SUBCUT BID metformin 500 mg tablet extended release 24 hr 1,000 mg PO BID Follow-up/Referrals: PHYSICIAN NOT ON STAFF,NONSTAFF [Primary Care Provider] - Stand Alone Forms: Work/School Release IP Time of Disposition: 15:47
[2024-11-15 15:41] LABS: Glucose Point of Care 371 mg/dl (65-105)
[2024-11-15 15:53] LABS: EDCOVIDSCREEN Negative (Negative); EDINFLUASCREEN Negative (Negative); EDINFLUBSCREEN Negative (Negative)
== END 2024-11-15 15:52 | disposition home or self-care (01) ==
PROVIDERS: Emergency Provider Nurse Practitioner
DX: J11.1 Influenza due to unidentified influenza virus with other respiratory manifestations (principal); Z20.822 Contact with and (suspected) exposure to COVID-19; E11.9 Type 2 diabetes mellitus without complications; Z79.01 Long term (current) use of anticoagulants; Z79.84 Long term (current) use of oral hypoglycemic drugs; I10 Essential (primary) hypertension
CPT/HCPCS: 82948; 87426; 87804; 99212; G0463

== ENCOUNTER 2025-07-02 10:37 | Emergency (ER) | payer OTHER, SELFPAY ==
[2025-07-02 10:44] VITALS: BP 123/90; PULSE 109; RESP 20; TEMP 36.8; O2SAT 99
--- NOTE | 2025-07-02 11:05 | ED_ITS ---
HPI - Male Genitourinary General Chief complaint: Urogenital-Male Stated complaint: painful urination Time Seen by Provider: 07/02/25 10:56 Source: patient and RN notes reviewed Mode of arrival: ambulatory Limitations: no limitations History of Present Illness HPI Narrative: Patient presents today complaining of dysuria, urgency, frequency since yesterday with some bilateral low back pain, worse on the right. Denies abdominal pain, hematuria, testicular pain or swelling. No OTC treatment prior to arrival. History of IDDM. No concerns for sexually transmitted infections. Patient does have history of kidney stones approximately 15 years ago, but states current symptoms do not feel similar. Related Data Home Medications ?Medication ?Instructions ?Recorded ?Confirmed ?Last Taken ?Type insulin detemir U-100 100 unit/mL 100 unit subcut BID 08/19/21 03/13/22 Unknown History (3 mL) subcutaneous pen (Levemir FlexTouch U-100 Insulin) metformin 500 mg tablet,extended 1,000 mg PO BID 08/1903/13/22 Unknown History release 24 hr insulin lispro 100 unit/mL 100 ea subcut TID 03/13/22 03/13/22 Unknown History subcutaneous pen lisinopril 20 mg tablet 20 mg PO DAILY 03/13/2202/25 Unknown History Allergies Allergy/AdvReac Type Severity Reaction Status Date / Time No Known Allergies Allergy Verified 07/02/25 10:56 [facility] Past Medical History Medical History Hypertension Diabetes Social History Social History Living arrangements: with family Gender identity (if verbalized by the patient): Male Comments At time of signature, I have reviewed and agree with nursing past medical, surgical, social and family history unless otherwise noted. Please see nursing chart for further information. There is no relevant family history pertinent to the presenting complaint Exam Narrative: GENERAL: Well-appearing, well-nourished, and in no acute distress. HEAD: Normocephalic, atraumatic. EYES: EOMI. No redness or drainage. Conjunctivae normal. ENT: Mucous membranes pink and moist. NECK: Normal AROM. CHEST: No respiratory distress. Clear to auscultation. HEART: Regular rate and rhythm. No murmur appreciated. ABDOMEN: Soft, nondistended, normal active bowel sounds. -CVAT. Nontender to palpation. MUSCULOSKELETAL: No bony tenderness. Bilateral lower lumbar paraspinal muscles mildly tender. EXTREMITIES: Normal range of motion. No edema. SKIN: Warm, dry, no rash. Capillary refill normal. Normal skin turgor. NEURO: No focal deficits. Alert and oriented x3. Gait steady. PSYCH: Normal affect. No signs of depression or anxiety. Course Course Level of Care: Express Care Visit Vital Signs Vital signs: Vital Signs Temperature 98.2 F 07/02/25 10:44 Pulse Rate 109 H 07/02/25 10:44 Respiratory Rate 20 07/02/25 10:44 Blood Pressure 123/90 07/02/25 10:44 Pulse Oximetry 99 07/02/25 10:44 Oxygen Delivery Room Air 07/02/25 10:44 Temperature 98.2 F 07/02/25 10:44 Pulse Rate 109 H 07/02/25 10:44 Respiratory Rate 20 07/02/25 10:44 Blood Pressure 123/90 07/02/25 10:44 Pulse Oximetry 99 07/02/25 10:44 Oxygen Delivery Room Air 07/02/25 10:44 Reviewed MDM - Male Genitourinary MDM Narrative Medical decision making narrative: 50-year-old male patient presents today complaining of dysuria, urgency, freq uency since yesterday with some bilateral low back pain, worse on the right. No OTC treatment prior to arrival. Normal physical exam except for bilateral mild lower lumbar paraspinal muscle tenderness without CVAT. No abdominal tenderness. Patient's urinalysis shows 2+ glucose, 1+ ketones, 3+ blood, 2+ protein, positive nitrates, and 1+ leukocytes. He will be treated with Augmentin. At this time his physical exam and history does not indicate a kidney stone. VSS with slight tachycardia upon arrival. Patient agrees with plan. Anticipatory guidance and strict ED precautions given. Differential Diagnosis Differential diagnosis: Likely urinary tract infection, urethritis, prostatitis and other (Pyelonephritis) Lab Data Attestation: I reviewed the patient's lab results. Labs: Lab Results 07/02/25 Range/Units 11:04 POC Urine Color Dark POC Urine Clarity Cloudy POC Urine pH 5.5 POC Ur Specif [place] 1.030 POC Urine Protein 2+ (Negative) POC Ur Glucose (UA) 2+ (Negative) POC Urine Ketones 1+ (Negative) POC Urine Blood 3+ (Negative) POC Urine Nitrite Positive (Negative) POC Urine Bilirubin Negative (Negative) POC Urine Urobilinogen 0.2 POC U Leukocyte Esteras 1+ (Negative) Critical Care Time Critical Care Time Critical Care Time: No Discharge Plan Discharge Clinical Impression: Urinary tract infection Qualifiers: Urinary tract infection type: acute cystitis Hematuria presence: with hematuria Qualified Code(s): N30.01 - Acute cystitis with hematuria Patient Disposition: Home Condition: Stable Instructions: Antibiotic Form, Urinary Tract Infection in Men (DC) Additional Instructions: Your urine shows infection today. Take Augmentin as prescribed until gone. Your urine will be sent of for a culture to identify what type of bacteria is causing your infection. If the culture shows that your medication will not get rid of your infection, you will be notified and a new antibiotic will be called in for you. If your symptoms worsen to include fever, sweats, chills, nausea, vomiting, severe abdominal or back pain, please go to the ER for further evaluation. Patient Language: Occitan Prescriptions: New amoxicillin-pot clavulanate 875-125 mg tablet 1 tablet PO Q12H 7 Days Qty: 14 0RF No Action insulin lispro 100 unit/mL insulin pen 100 ea SUBCUT TID lisinopril 20 mg tablet 20 mg PO DAILY albuterol sulfate 90 mcg/actuation HFA aerosol inhaler 2 puff INHALATION QID PRN (Reason: shortness of breath or wheezing) Qty: 8 0RF Levemir FlexTouch U100 Insulin 100 unit/mL (3 mL) insulin pen 100 unit SUBCUT BID metformin 500 mg tablet extended release 24 hr 1,000 mg PO BID Follow-up/Referrals: Fuentes,CADE Avery [Primary Care Provider, Unknown] Stand Alone Forms: Work/School Release IP Time of Disposition: 11:15
[2025-07-02 11:10] LABS: EDUAAPPEAR Cloudy; EDUABILI Negative (Negative); EDUABLOOD 3+ (Negative); EDUACOLOR1 Dark; EDUAGLUCOSE 2+ (Negative); EDUAKETONE 1+ (Negative); EDUALEUKO 1+ (Negative); EDUANITRATE Positive (Negative); EDUAPH 5.5; EDUAPROTEIN 2+ (Negative); EDUASPGRAVITY 1.030; EDUAUROBILI 0.2
--- OUTSIDE RECORDS SUMMARY | 2025-07-02 12:02 | XMS_ITS | Clinical Summary ---
Author Organization [facility] Address [address] [place] [address] Care Team Providers Care Cutter V Groove Name Role Phone Fuentes, Gena Friedman RESEARCH COORDINATOR Primary Care Provider Allergies No known active allergies Medications BD Ultra-Fine Short Pen Needle 31 gauge x 5/16 needle USE NEW PEN NEEDLE TWICE DAILY 03/07/20 21 Active insulin lispro (HumaLOG, ADMELOG) 100 unit/mL pen for injection Inject 8-13 Units under the skin 3 (three) times a day before meals 45 mL 1 11/19/19 23 Active Additional Information Patient not taking.Reported on 06/13/2025 hydroCHLOROthia zide (MICROZIDE) 12.5 mg capsule Take by mouth daily 02/18/[address] (VOLTAREN) 75 mg EC tablet Take 1 tablet (75 mg total) by mouth 2 (two) times a day 07/16/20 23 Active blood-glucose sensor (Dexcom G6 Sensor) deviceIndicatio ns:Type 2 diabetes mellitus with hyperglycemia, with long-term current use of insulin (HCC) USE DIRECTED AND CHANGE SENSOR EVERY 10 DAYS 9 each 3 11/08/19 25 Active blood-glucose transmitter (Dexcom G6 Transmitter) deviceIndicatio ns:Type 2 diabetes mellitus with hyperglycemia, with long-term current use of insulin (HCC) CHANGE EVERY 90 DAYS 1 each 3 11/13/19 Active insulin glargine 100 unit/mL (3 mL) pen for injectionIndica tions:Type 2 diabetes mellitus with hyperglycemia, with long-term current use of insulin ([facility]) Inject 32 Units under the skin nightly 15 mL 12/26/19 Active Additional Information Patient not taking.Reported on 06/13/2025 dulaglutide (TRULICITY) 1.5 mg/0.5 mL pen injectorIndicat ions:type 2 diabetes mellitus Inject 0.5 mL (1.5 mg total) under the skin every 7 days 6 mL 3 12/26/19 25 026 Active OneTouch Verio test strips stripIndication s:Type 2 diabetes mellitus with hyperglycemia, with long-term current use of insulin ([facility]) Check blood sugar 4 times daily 400 strip 3 12/26/19 Active OneTouch Verio Flex meter miscIndications :Type 2 diabetes mellitus with hyperglycemia, with long-term current use of insulin ([facility]) Check blood sugars 4 times daily 1 each 12/26/19 25 Active lancets miscIndications :Type 2 diabetes mellitus with hyperglycemia, with long-term current use of insulin ([facility]) Check blood sugar four times a day or as directed 400 each 3 12/26/19 25 Active lisinopriL (PRINIVIL,ZESTR [place]) 40 mg tabletIndicatio ns:Hypertension associated with type 2 diabetes mellitus (HCC) Take 1 tablet (40 mg total) by mouth daily 90 tablet 3 12/26/19 25 026 Active rosuvastatin (CRESTOR) 40 mg tabletIndicatio ns:Hyperlipidem ia associated with type 2 diabetes mellitus (HCC) Take 1 tablet (40 mg total) by mouth daily 90 tablet 3 12/27/[address] (CYMBALTA) 20 mg capsule Take 1 capsule (20 mg total) by mouth 2 (two) times a day 01/18/20 25 Active glipiZIDE (GLUCOTROL) 5 mg tablet Take 1 tablet (5 mg total) by mouth 2 (two) times a day Active OneTouch Delica Plus Lancet 30 gauge misc USE FOUR TIMES DAILY OR DIRECTED 12/26/19 25 Active metFORMIN (GLUCOPHAGE) 1,000 mg tabletIndicatio ns:Type 2 diabetes mellitus with hyperglycemia, with long-term current use of insulin ([facility]) TAKE 1 TABLET(1000 MG) BY MOUTH TWICE DAILY WITH MEALS 180 tablet 3 04/09/20 25 Active insulin lispro (HumaLOG, ADMELOG) 100 unit/mL vial for injectionIndica tions:Type 2 diabetes mellitus with hyperglycemia, with long-term current use of insulin ([facility]) FOR USE IN INSULIN PUMP. MAXIMUM DAILY INSULIN IS 80 UNITS 30 mL 3 06/12/20 25 Active amoxicillin (AMOXIL) 875 mg tablet Take 1 tablet (875 mg total) by mouth 2 (two) times a day 06/05/20 25 Active insulin detemir (LEVEMIR) 100 unit/mL (3 mL) pen for injection 2 (two) times a day 08/19/20 21 Active sildenafiL (VIAGRA) 100 mg tablet TAKE 1 TABLET BY MOUTH ONCE DAILY NEEDED FOR ERECTILE DYSFUNCTION. MAX OF ONE TABLET PER DAY 04/05/20 25 Active insulin lispro (HumaLOG, ADMELOG) 100 unit/mL vial for injectionIndica tions:Type 2 diabetes mellitus with hyperglycemia, with long-term current use of insulin ([facility]) FOR USE IN INSULIN PUMP. MAXIMUM DAILY INSULIN IS 80 UNITS 30 mL 3 02/09/20 25 025 Discontinued Hospital, Clinic, or Other Facility Administered Medication Ordered Dose Route Frequency Start Date End Date Status lidocaine (XYLOCAINE) 20 mg/mL (2 %) injection 3 mLIndications:Admini stration of Local Anesthesia 3 mL One-Time Injection 06/13/2025 5 Ended methylPREDNISolone acetate (DEPO-medrol) injection 80 mgIndications:Primar y osteoarthritis of left knee,Internal derangement of knee involving anterior horn of medial meniscus, left 80 mg intra-artic One-Time Injection 06/13/2025 5 Ended Active Problems Problem Noted Date Diagnosed Date Diabetes 06/13/2025 Heat exhaustion 02/16/2025 Abnormal stress test 02/15/2025 Chest pain, unspecified type 02/13/2025 Class 2 severe obesity due t o excess calories with serious comorbidity and body mass index (BMI) of 38.0 to 38.9 in adult 12/25/2024 Assessment & Plan (12/25/2024 10:36 AM CDT): Discussed healthy diet and importance of regular physical activity (20- 30min/day, 150min/wk). Will restart Trulicity at 1.5mg weekly. Reviewed SE & scheduling. Facial cellulitis 02/10/2023 Assessment & Plan (02/12/2023 [...] to also try seeking care with an car head liner installer. Assessment & Plan (02/11/2023 1:47 PM CDT): [...] to also try seeking care with an car head liner installer. Assessment & Plan (02/10/2023 5:46 PM CDT): [...] diabetes michelle litus 01/14/2023 Assessment & Plan (02/28/2025 11:08 AM CDT): Chronic problem. Controlled on current taking lisinopril 40mg daily. Assessment & Plan (12/25/2024 11:05 AM CDT): Chronic problem. Has not yet taken lisinopril today & BP elevated upon arrival & again at end of appointment. Currently taking lisinopril 40mg daily. Will update labs. Verified that he uses [facility]. Aware to check results/results letter in [facility]. Will contact by phone if needed. Assessment & Plan (07/22/2023 9:37 AM CDT): [...] Insulin pump status 01/14/2023 Assessment & Plan (02/28/2025 11:05 AM CDT): No pump setting changes. Have long acting , basal insulin ( e.g. Lantus, NPH) and insulin syringes as back up in case of pump failure. If you have to take your insulin pump off for more than 12 hours, start taking basal insulin every 24 h (take 80 % of the 24 hour insulin delivered to you via insulin pump as calculated based on your basal rates) and inject meal time insulin by injections, calculating the same way you do with your pump bolus (according to carb intake and blood sugar readings). Lantus 32 units nightly Humalog 8 units 3 times daily with meals plus below sliding scale insulin Sliding scale: If blood sugar is <150, take 8 units. If blood sugar is between 151-200, take 9 units. If blood sugar is between 201-250, take 10 units. If blood sugar is between 251-300, take 11 units. If blood sugar is between 301-350, take 12 units. If blood sugar is between >351, take 13 units. Assessment & Plan (12/25/2024 10:33 AM CDT): Has not used insulin in 2 weeks since not wearing pump. Discussed at length need to use long acting & meal time insulin injections if not wearing pump: Have long acting , basal insulin ( e.g. Lantus, NPH) and insulin syringes as back up in case of pump failure. If you have to take your insulin pump off for more than 12 hours, start taking basal insulin every 24 h (take 80 % of the 24 hour insulin delivered to you via insulin pump as calculated based on your basal rates) and inject meal time insulin by injections, calculating the same way you do with your pump bolus (according to carb intake and blood sugar readings). Lantus 32 units nightly Humalog 8 units 3 times daily with meals plus below sliding scale insulin Sliding scale: If blood sugar is <150, take 8 units. If blood sugar is between 151-200, take 9 units. If blood sugar is between 201-250, take 10 units. If blood sugar is between 251-300, take 11 units. If blood sugar is between 301-350, take 12 units. If blood sugar is between >351, take 13 units. Assessment & Plan (07/22/2023 9:41 AM CDT): [...] 01/15/2022 Assessment & Plan (10/26/2023 10:36 AM PLASTIC INJECTION MOLD MAKER): Start Sildenafil Vasectomy evaluation 01/15/2022 Noncompliance with medication regimen 11/23/2021 Noncompliance with treatment regimen 10/12/2021 Right lower quadrant pain 06/24/2021 COVID-19 05/26/2021 Mood disorder 10/03/2019 Abnormal liver function tests 06/06/2018 Sleep pattern disturbance 06/06/2018 Obstructive sleep apnea syndrome 06/06/2018 Vitamin D deficiency 06/06/2018 Type 2 diabetes mellitus wit h hyperglycemia, with long-term current use of insulin 05/19/2018 Assessment & Plan (02/28/2025 11:14 AM CDT): Chronic problem. A1c uncontrolled but improved from 8.9% 12/25/24 to now 8.1%. GMI shows 7.3%. control IQ turned on at time of appt. Current medications: Metformin 1000mg twice daily before meals Trulicity 1.5 mg weekly Humalog via T-Slim with CIQ BR 12a 1.7 CR 6 CF 25 T 110 AIT 5 hours UTD on labs. UTD on DM eye exam (01/2023 no DMR). Appt 01/2025; letter sent to get copy of report. Strive for regular exercise (30min most days) and diet (get at least 4-5 servings of fruit and veggies daily, avoid processed foods, increase lean protein intake and decrease carb portions as well as fruit juices, regular soda & desserts). Watch carbs and simple sugars. Dexcom for blood sugar via Dexcom or check 4x/day with glucometer. Check the feet daily for skin breakdown and infection. Assessment & Plan (12/25/2024 11:04 AM CDT): Chronic problem. A1c uncontrolled & worsened from 6.3% to now 8.9%. He has not been on pump & not giving insulin injections in past few weeks. States that he cannot get new transmitter until 01/12/25 therefore he just did not use pump or call. Will use glucometer (sent in today) & pump until then. Long acting insulin sent in & SSI given if he needs to be off of pump at any time. Instructions given at time of appt & on AVS for him to keep with him. -will increase Trulicity to 1.5mg weekly as he states the 0.75 did not help with weight or sugar. Current medications: Metformin 1000mg twice daily before meals Trulicity 1.5 mg weekly Humalog via T-Slim with CIQ (turned off at time of appt) BR 12a 1.7 CR 6 CF 25 T 110 AIT 5 hours If off of pump: Have long acting , basal insulin ( e.g. Lantus, NPH) and insulin syringes as back up in case of pump failure. If you have to take your insulin pump off for more than 12 hours, start taking basal insulin every 24 h (take 80 % of the 24 hour insulin delivered to you via insulin pump as calculated based on your basal rates) and inject meal time insulin by injections, calculating the same way you do with your pump bolus (according to carb intake and blood sugar readings). Lantus 32 units nightly Humalog 8 units 3 times daily with meals plus below sliding scale insulin Sliding scale: If blood sugar is <150, take 8 units. If blood sugar is between 151-200, take 9 units. If blood sugar is between 201-250, take 10 units. If blood sugar is between 251-300, take 11 units. If blood sugar is between 301-350, take 12 units. If blood sugar is between >351, take 13 units. Will update labs today. Verified that he uses [facility]. Aware to check results/results letter in [facility]. Will contact by phone if needed. UTD on DM eye exam (01/2023 no DMR). Will call to schedule at [facility]. Strive for regular exercise (30min most days) and diet (get at least 4-5 servings of fruit and veggies daily, avoid processed foods, increase lean protein intake and decrease carb portions as well as fruit juices, regular soda & desserts). Watch carbs and simple sugars. Dexcom for blood sugar via Dexcom or check 4x/day with glucometer. Check the feet daily for skin breakdown and infection. Assessment & Plan (10/26/2023 10:35 AM PLASTIC INJECTION MOLD MAKER): Hba1c was Lab Results Component Value Date [...] on DM eye exam; had 01/2023 at [facility]. Letter sent to get copy of [...] & Lipid today. Verified that he uses [facility]. Aware to check results/results letter in [facility]. Will contact by phone if needed. Will try to get Ozempic again. 0.25mg weekly for 2 weeks. Then increase to 0.5mg weekly. Current medications: Metformin 1000mg twice daily before meals Ozempic 0.25mg weekly x2 weeks then increase to 0.5mg weekly T-Slim with CIQ BR 12a 1.6 CR 6 CF 25 T 110 AIT 5 hours Assessment & Plan (10/15/2022 2:07 PM PLASTIC INJECTION MOLD MAKER): Hba1c was Lab Results Component Value Date [...] 4:35 PM CDT): Diagnosed with diabetes in 2012 Started insulin ar diagnosis Control : poor [...] diabetes harrison gibson 05/19/2018 Assessment & Plan (02/28/2025 11:06 AM CDT): Chronic problem. Currently taking rosuvastatin 20mg. Last lipid panel: 12/25/24 CEW=370, BF=256. Assessment & Plan (12/25/2024 11:03 AM CDT): Chronic problem. Currently taking rosuvastatin 20mg. Last lipid panel: 01/14/23 WTG=064, FQ=844. Will update labs. Verified that he uses [facility]. Aware to check results/results letter in [facility]. Will contact by phone if needed. Assessment & Plan (10/26/2023 10:36 AM PLASTIC INJECTION MOLD MAKER): Increased CV in DM pts discussed Start [...] need outpatient urology follow-up for possible cystoscopy. Encounters Date Type Department Care Team Description 06/13/2025 3:45 PM CDT Office Visit [facility] [address] [place] [address] [address] [address] Liborio Sparks PA Primary osteoarthritis of left knee (Primary Dx); Internal derangement of knee involving anterior horn of medial meniscus, left from Last 3 Months Surgical History Surgery Date Site/Laterality Comments CARDIAC CATHETERIZATION 02/15/2025 N/A Procedure: LEFT HEART CATHETERIZATION WITH CORONARY ANGIOGRAPHY AND WITH OR WITHOUT LEFT VENTRICULOGRAM [id number]; Surgeon: Lacie Lopez MD; Location: [facility]; Service: Cardiovascular; Laterality: N/A; Medical devices from this surgery are in the Medical Devices section. Medical History Medical History Date Comments Diabetes mellitus Hypertension Family History Medical History Relation Name Comments Diabetes Father Hypertension Father Hypertension Mother Relation Name Status Comments Father Mother Social History Tobacco Use Types Packs/Day Years Used Date Smoking Tobacco: Former Cigars Smokeless Tobacco: Never Tobacco Cessation:Counseling Given: Not Answered Comments:1 cigar approximately once a month. Patient states he no longer smokes cigars Alcohol Use Standard Drinks/Week Comments Not Currently 0 (1 standard drink = 0.6 oz pur e alcohol) AUDIT-C Answer Date Recorded Q1: How often do you have a drink containing alcohol? Never 02/13/2025 Q2: How many drinks containi ng alcohol do you have on a typical day when you are drinking? Patient does not drink Q3: How often do you have si x or more drinks on one occasion? Never 02/13/2025 Personal Safety Answer Date Recorded Have you ever been in or are you currently in a harmful physical or emotional relationship or is someone making you feel afraid or unsafe? Denies 02/13/2025 Sex and Gender Information Value Date Recorded Sex Assigned at Not on file Legal Sex Male 12:29 AM PLASTIC INJECTION MOLD MAKER Gender Identity Not on file Sexual Orientation Not on file Obstetrics History Last Filed Vital Signs Vital Sign Reading Time Taken Comments Blood Pressure 144/99 06/13/2025 3:38 PM CDT Pulse 80 06/13/2025 3:38 PM CDT Temperature 36.3 C (97.3 F) 02/15/2025 11:55 AM CDT Respiratory Rate 18 03/22/2025 1:50 PM CDT Oxygen Saturation 93% 02/15/2025 3:20 PM CDT Inhaled Oxygen Concentration - - Weight 113.4 kg (250 lb) 06/13/2025 3:38 PM CDT Height 167.6 cm (5' 6) 06/13/2025 3:38 PM CDT Body Mass Index 40.35 06/13/2025 3:38 PM CDT Plan of Treatment Health Maintenance Due Date Last Done Comments Colon Cancer Screening-Colonoscopy 1975 Depression Screening 1975 Hepatitis C Screening 1975 Prostate Cancer Screening-PSA 1975 DTaP/Tdap/Td Vaccine (1 - Tdap) 1986 Hepatitis B Screening 1993 Regular Well Visit/Exam 18-64 1993 Pneumococcal vaccine <65 (1 of 2 - PCV) 1994 Zoster Vaccine (1 of 2) 2025 Influenza Vaccine (#1) 2025 8, 07/02/2015, 07/20/2014 Hemoglobin A1C 08/30/2025 02/28/2025, 2024, 10/26/2023, Additional history exists Albumin Creatinine Ratio, Urine 12/25/2025 5, 01/14/2023 Foot Exam 12/25/2025 12/25/2024, 04/2 , 03/24/2021 Lipid Panel 12/25/2025 12/25/2024, 04/2 , 11/29/2020 eGFR 02/15/2026 02/15/2025, 052 09/2024, 02/13/2025, Additional history exists Dilated Eye Exam 03/01/2026 03/01/2025, 02/18/2023 Medical Devices Implanted Type Area Communicable Disease Specialist Device Identifier Shelf Expiration Date Model / Serial / Lot New [employer]uro Jen Angio-Seal Vip 6fr Closere Device [id number] - [id number] Implanted:Qty: 1 on 02/15/2025 by Lacie Lopez MD at [facility] Vascular Closure Device [employer] 05/01/2025 [id number] / / [id number] Procedures Procedure Name Priority Date/Time Associated Diagnosis Comments AL ARTHROCENTESIS ASPIR&/INJ MAJOR JT/BURSA W/O US Routine 06/13/2025 3:45 PM CDT Primary osteoarthritis of left knee Internal derangement of knee involving anterior horn of medial meniscus, left HM DIABETES EYE EXAM Routine 03/01/2025 8:00 AM CDT POCT HEMOGLOBIN A1C Routine 02/28/2025 1 0:24 AM CDT Type 2 diabetes mellitus with hyperglycemia, with long-term current use of insulin (HCC) EGFR Routine 02/15/2025 3:09 AM CDT LIPID PANEL Routine 12/25/2024 11:00 AM CDT Type 2 diabetes mellitus with hyperglycemia, with long-term current use of insulin (HCC) Hyperlipidemia associated with type 2 diabetes mellitus (HCC) ALBUMIN CREATININE RATIO, URINE Routine 12/25/2024 11:00 AM CDT Type 2 diabetes mellitus with hyperglycemia, with long-term current use of insulin (HCC) from Last 3 Months or Most Recently Relevant to Health Maintenance Results * AL ARTHROCENTESIS ASPIR&/INJ MAJOR JT/BURSA W/O US (06/13/2025 3:45 PM CDT) Narrative Liborio Sparks PA - 06/13/2025 3:45 PM CDT Liborio Sparks PA 06/13/2025 3:52 PM Large Joint (Hip, Knee, Shoulder) Injection: L knee Performed by: Liborio Sparks PA Authorized by: Liborio Sparks PA Large Joint Injection/Aspiration: Consent Given by: Patient Site marked: the procedure site was marked Timeout: prior to procedure the correct patient, procedure, and site was verified Verbal consent obtained: Yes Supporting Documentation: Indications: Pain Procedure Details: Location: Knee Site: L knee Prep: patient was prepped using a clean technique Needle Size: 22 G Approach: Anterolateral Ultrasound guided: No Fluroscopic guidance: No Medications: 3 mL lidocaine 20 mg/mL (2 %); 80 mg methylPREDNISolone acetate 80 mg/mL Patient tolerance: Patient tolerated the procedure well with no immediate complications Liborio SANDOVAL IN [facility]/BEDSIDE ARNOL MEYER Final Result * (ABNORMAL) DIABETES EYE EXAM (03/01/2025 8:00 AM CDT) us Historical Provider HEALTH MAINTENANCE Final Result * (ABNORMAL) POCT hemoglobin A1c (02/28/2025 10:24 AM CDT) Hemoglobin A1C, POC 8.1(A) 4.0 - 5.6 % Blood 02/28/2025 10:2 4 AM CDT us Senia Barry NP POINT OF CARE TEST ORDERA BLES Final Result * eGFR (02/15/2025 3:09 AM CDT) eGFR >90 >=60 mL/min/1. 73 m2 Comment: Interpretive Data Reference Interval Normal >/= [...] interpretive data was last reviewed 2021. Blood 02/15/2025 3:09 AM CDT 02/15/2025 4:11 AM CDT us Ngoc Herzog DO LAB BLOOD ORDERABLES Fin al Result [facility]) [address] [facility] Department [place] [address] * (ABNORMAL) Albumin Creatinine Ratio, Urine (12/25/2024 11:00 AM CDT) Albumin Ur 28.1 mg/L Comment: Interpretive Data No reference range established. Current interpretive data was last revised 2019. Creatinine Ur 80.3 mg/dL [facility] Comment: Interpretive Data No reference range established. Current interpretive data was last revised 2019. Albumin Creatinine Ratio, Ur 35(H) 1 - 29 mg/g [facility] Urine 12/25/2024 11:0 0 AM CDT 12/25/2024 7:46 PM CDT us Senia Barry NP LAB URINE ORDERABLES Lana dias Result [facility] [id number] Department [place] [address] * (ABNORMAL) Lipid panel (12/25/2024 11:00 AM CDT) Cholesterol 186 30 - 199 mg/dL Comment: Interpretive Data Ages < or = [...] Data was last revised on 2018. Triglycerides 188(H) <=149 mg/dL [facility] Comment: Interpretive Data Ages < or = [...] Data was last revised on 2018. HDL 36(L) >=40 mg/dL [facility] Comment: Interpretive Data [...] was last revised on 2018. LDL, calculated 117 <=129 mg/dL [facility] Comment: Interpretive Data Ages < or = 19 years Acceptable: <110 mg/dL Borderline high: 110-129 mg/dL High: >or= 130 mg/dL Ages > or = 20 years Optimal: <100 mg/dL Near optimal: 100-129 mg/dL Borderline high: 130-159 mg/dL High: >160 mg/dL Calculated using the Conor LDL-C estimating equation. This equation was implemented on 2024. Prior to this date LDL-C was estimated using the Friedewald equation. Literature References: 1. Expert Panel on Integrated Guidelines for Cardiovascular Health and Risk Reduction in Children and Adolescents. Pediatrics 2011;128:S213 2. NCEP Expert Panel. Circulation 2004;110:227 3. Conor Thomas et al. RACHEL Cardiol. 2019January 25;5(5):540-548. doi: 10.1001/[email or web address] Current Interpretive Data was last revised on 2024. Non-HDL Cholesterol 150 mg/dL [facility] Comment: Interpretive Data Ages [...] on 2018. Chol/HDL ratio 5 [facility] Comment:Corrected result rudy led to Julia Lewis RN at 12/26/2024 14:12:18 CDT by Mattie Hagen. Blood 12/25/2024 11:0 0 AM CDT 12/25/2024 7:46 PM CDT us Senia Barry NP LAB BLOOD ORDERABLES Edit ed Result - Final [facility] [id number] Department [place] [address] from Last 3 Months or Most Recently Relevant to Health Maintenance Insurance [facility] [place] [address] Advance Directives For more information, please contact: [phone] * Full Code (Latest Code Status on File) Date Activated Date Inactivated Comments 02/13/2025 8:44 PM 02/15/2025 9:16 PM * Full Code Date Activated Date Inactivated Comments 02/10/2023 5:12 AM 02/13/2023 4:56 PM * Full Code Date Activated Date Inactivated Comments 05/19/2018 2:03 PM 05/21/2018 4:13 PM Care Teams Cutter V Groove Relationship Specialty Start Date End Date Gena Dill NP [address] [address] PCP - General Family Medicine 03/03/21
--- OUTSIDE RECORDS SUMMARY | 2025-07-02 12:02 | XMS_ITS | Clinical Summary ---
Author Organization [facility] Address [address] [place] [address] Phone Care Team Providers Care Field Crop Farming Supervisor Name Role Phone Gena Dill APRN, [employer] SALESPERSON Primary Care Provider Social History Tobacco Use [...] of 3 - 19+ 3-dose series) 1994 Cologuard 2020 Colonoscopy 2020 Colorectal Cancer Screening 2020 Immunochemical Fecal Occult Blood 2020 Pneumococcal Immunization (5 0+ years) (1 of 1 - PCV) 2025 Zoster Immunization (1 of 2) 2025 Influenza Immunization (#1) 2025 11/0 01/2018, 07/02/2015, 07/20/2014 SARS-COV-2 Immunization ( - season) 2025 Respiratory Syncytial Virus (RSV) Immunization (Adult) (1 - 1-dose 75+ series) 2050 Human Papillomavirus (HPV) Immunization Aged Out No longer eligible b ased on patient's age to complete this topic Meningococcal Immunization (ACWY) Aged Out No longer eligible b ased on patient's age to complete this topic Rotavirus Immunization Aged Out No lo nger eligible based on patient's age to complete this topic Insurance [employer]ICAID [employer] Care Teams Field Crop Farming Supervisor Relationship Specialty Start Date End Date Gena Dill APRN, BURIAL NEEDS SALESPERSON [address] [place] [address] PCP - General Advanced Practice Nurse 11/27/21
== END 2025-07-02 11:22 | disposition home or self-care (01) ==
PROVIDERS: Emergency Provider Nurse Practitioner; PCP Nurse Practitioner Family
DX: N30.01 Acute cystitis with hematuria (principal); E11.9 Type 2 diabetes mellitus without complications; I10 Essential (primary) hypertension
CPT/HCPCS: 81003; 87077; 87086; 87186; 99213; G0463